=== PATIENT | male | born 1930 | race Caucasian/White ===

== ENCOUNTER 2017-03-15 16:08 | Emergency (ER) | payer MEDICARE, OTHER ==
[2017-03-15 16:35] VITALS: BP 163/102
--- NOTE | 2017-03-15 17:54 | RAD ---
INDICATION: Crush injury left fifth finger. TECHNIQUE: 3 views of the left fifth finger were obtained. FINDINGS: There is soft tissue swelling and a soft tissue defect adjacent to the distal phalanx. There is a transverse fracture through the tuft of the distal phalanx. The distal fragment is displaced posterior and demonstrates posterior angulation relative the proximal fragment. IMPRESSION: TRANSVERSE, POSSIBLY OPEN, DISPLACED, ANGULATED FRACTURE OF THE TUFT OF THE DISTAL PHALANX.
--- NOTE | 2017-03-15 19:19 | ED ---
Upper Extremity Pain - HPI Summary HPI Summary: 86M presents with left fifth digit laceration after getting it caught in the garage door. He states that he was closing in the door and his finger got caught. He is not on any blood thinners. His tetanus is up to date. Has full ROM of fingers. - History of Current Complaint Chief Complaint: EDExtremityUpper Stated Complaint: LT PINKY FINGER LAC Time Seen by Provider: 03/15/17 16:47 - Allergies/Home Medications Allergies/Adverse Reactions: Allergies Allergy/AdvReac Type Severity Reaction Status Date / Time CI Pigment Blue 63 Allergy Muscle Ache Verified 12/09/15 08:03 [From Bystolic] Nebivolol [From Bystolic] Allergy Muscle Ache Verified 12/09/15 08:03 Olmesartan [From Benicar] Allergy Muscle Ache Verified 12/09/15 08:03 Ramipril Allergy Muscle Ache Verified 12/09/15 08:03 Sorbitan [From Bystolic] Allergy Muscle Ache Verified 12/09/15 08:03 Sulfa Antibiotics Allergy Rash And Verified 12/09/15 08:03 Itching Timolol Allergy Difficulty Verified 12/09/15 08:03 Breathing Yellow Dye [From Bystolic] Allergy Muscle Ache Verified 12/09/15 08:03 PMH/Surg Hx/FS Hx/Imm Hx Endocrine/Hematology History: Reports: Hx Diabetes - TAKES METFORMIN Denies: Hx Thyroid Disease Cardiovascular History: Reports: Hx Hypertension - TAKES MEDS Respiratory History: Denies: Hx Asthma, Hx Sleep Apnea GI History: Denies: Hx Gastroesophageal Reflux Disease, Hx Irritable Bowel Musculoskeletal History: Denies: Hx Arthritis Sensory History: Reports: Hx Contacts or Glasses - READING GLASSES Denies: Hx Hearing Aid Opthamlomology History: Reports: Hx Contacts or Glasses - READING GLASSES Neurological History: Denies: Hx Headaches, Hx Migraine, Hx Seizures Psychiatric History: Denies: Hx Anxiety, Hx Depression - Surgical History Surgery Procedure, Year, and Place: RIGHT EYE Hx Anesthesia Reactions: No Infectious Disease History: No Infectious Disease History: Denies: Traveled Outside the [place] in Last 30 Days - Family History Known Family History: Positive: Cardiac Disease - Social History Alcohol Use: Rare Substance Use Type: Reports: None Smoking Status (MU): Former Smoker Review of Systems Negative: Fever Negative: Chest Pain Negative: Shortness Of Breath Positive: Myalgia - left pinky finger with lac All Other Systems Reviewed And Are Negative: Yes Physical Exam Triage Information Reviewed: Yes Vital Signs On Initial Exam: Initial Vitals Temp Pulse Resp BP Pulse Ox 97.8 F 89 16 163/102 95 03/15/17 16:31 03/15/17 16:31 03/15/17 16:31 03/15/17 16:31 03/15/17 16:31 Vital Signs Reviewed: Yes Appearance: Positive: Well-Appearing Skin: Positive: Warm, Dry, Other - left 5th finger 1cm laceration across distal phalanx almost looks like partial ambutation. two small lac near end of nail. nailbed intact. subungual hematoma on nail Head/Face: Positive: Normal Head/Face Inspection Eyes: Positive: Normal, Conjunctiva Clear Respiratory/Lung Sounds: Positive: Clear to Auscultation, Breath Sounds Present Cardiovascular: Positive: Normal, RRR Musculoskeletal: Positive: Strength/ROM Intact - left pinky finger, Other - good pulses, sensation grossly intact - Kwasi Coma Scale Coma Scale Total: 15 Procedures - Laceration/Wound Repair 1 Location: Other - left pinky finger Description: Irregular Anesthesia: Digital, 1.0% Length, Depth and Shape: 1cm by 1/4cm laceration across distal phalanx. two small lac near end of nail. Betadine Prep?: Yes Irrigated w/ Saline (ccs): 1,000 Laceration/Wound Explored: clean, no foreign body removed Closure: Single Layer Suture Type: Prolene Number of Sutures: 6 Layer Closure?: No Sterile Dressing Applied?: Yes - telfa, coband, finger splint - Nail Trepanation Nail Trepanation Location: left pinky finger Method of Drainage: nail cauterized Sterile Dressing Applied: Yes - coband and telfa Finger Splint: Yes Diagnostics - Vital Signs Vital Signs Temp Pulse Resp BP Pulse Ox 03/15/17 16:31 97.8 F 89 16 163/102 95 - Laboratory Lab Statement: Any lab studies that have been ordered have been reviewed, and results considered in the medical decision making process. - Radiology finger Xray Interpretation: Positive (See Comments) - IMPRESSION: TRANSVERSE, POSSIBLY OPEN, DISPLACED, ANGULATED FRACTURE OF THE TUFT OF THE DISTAL PHALANX. Radiology Interpretation Completed By: Radiologist Course/Dx - Course Course Of Treatment: 86M presents with left fifth digit laceration after getting it caught in the garage door. He states that he was closing in the door and his finger got caught. He is not on any blood thinners. His tetanus is up to date. Has full ROM of fingers. has 1cm laceration across distal phalanx almost looks like partial ambutation. two small lac near end of nail. nailbed intact. subungual hematoma so performed nail trepanation. placed in finger splint. placed on keflex. told to follow up with ortho due to potential open tuft fx. patient understands and agrees with plan. 6 - Diagnoses Differential Diagnosis/HQI/PQRI: Positive: Fracture (Open), Fracture (Closed), Other - laceration, avulsion Provider Diagnoses: left pinky tuft fracture, Laceration Discharge - Discharge Plan Condition: Good Disposition: HOME Prescriptions: Cephalexin CAP* [Keflex CAP*] 500 mg PO BID #13 cap Patient Education Materials: Care For Your Stitches (ED), Finger Fracture (ED) Referrals: Clifford Puentes MD [Primary Care Provider] - Shai Barclay MD [Medical Doctor] - Additional Instructions: Keep area in splint, change dressing once a day Keep area clean and dry for 48 hours Take Tylenol for pain every 6 hours Return to ED or primary for suture removal in 10-14 days Follow up with ortho Take keflex twice a day for 7 days Return to ED if develop signs of infection such as fever, spreading redness, or pus formation
[2017-03-15] MEDS ORDERED: Cephalexin CAP* 500 MG PO ONE (19:20)
== END 2017-03-15 19:40 | disposition home or self-care (01) ==
LOC: ED 16:08
DX: S62.637A Displaced fracture of distal phalanx of left little finger, initial encounter for closed fracture (principal); S61.217A Laceration without foreign body of left little finger without damage to nail, initial encounter; W23.0XXA Caught, crushed, jammed, or pinched between moving objects, initial encounter; Y93.9 Activity, unspecified; Y92.59 Other trade areas as the place of occurrence of the external cause; E11.9 Type 2 diabetes mellitus without complications; Z79.84 Long term (current) use of oral hypoglycemic drugs; I10 Essential (primary) hypertension; Z88.2 Allergy status to sulfonamides; Z87.891 Personal history of nicotine dependence
CPT/HCPCS: 12001; 73140; 99282; A9270-GY

== ENCOUNTER 2018-03-07 13:27 | Emergency (ER) | payer MEDICARE, OTHER ==
--- OUTSIDE RECORDS SUMMARY | 2018-03-07 13:33 | XMS REPORT ---
:1930 External Reference #:[id number] Author Organization [facility] Address [address] [place] [address] [place] [address] Phone [phone] Care Team Providers Name Role Phone Clifford Puentes III, MD Primary Care Physician Unavailable Payers Type Date Identification Numbers Payment Provider Subscriber Medicare Primary Effective: Policy Number: Medicare Joesph Richardson Chaparro 1994 [id number] PayID: [id number] [address] [place] [address] Medigap Part B Effective: Policy Number: [place] [employer] Joesph N Chaparro 2017 [id number] Accident Ins PayID: [id number] [address] [place] [address] Advance Directives Type Date Description Status Comment Other Directive 11/21/2013 Health Care Proxy Current and Verified Problems Date Description Provider Status Onset: 03/08/2011 Benign essential hypertension Clifford Puentes M.D. Active Onset: 05/02/2011 Type 2 diabetes mellitus Clifford Puentes M.D. Active Onset: 04/27/2012 Pure hypercholesterolemia Clifford Puentes M.D. 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 Active Family History Date Family Member(s) Problem(s) Comments Father due to Abdominal () - ? ruptured AAA; Aneurysm age 51, (+) smoker Mother Migraine Mother due to Diabetes () - ? DM complications; age 70, (+) HTN First Brother Diabetes Second Brother due to COPD () - age 78, (+) smoker Social History Type Date Description Comments Lives With Occupation Retired Cigarette Use Quit - Age 23 ETOH Use 01/24/2013 Occasionally consumes alcohol Smoking 1954 Patient is a former smoker Exercise Type/Frequency Exercises regularly Exercise Type/Frequency treadmill, exercise routine at [employer] 3x/week Allergies, Adverse Reactions, Alerts Date Description Reaction Status Severity Comments 11/07/2007 Sulfa active 11/07/2007 Zestoretic active 03/17/2010 Benicar ? muscle aches active 01/24/2013 Ramipril headaches active 05/06/2013 Timolol unsure active 09/24/2013 Bystolic severe muscle aches. active Medications Medication Date Status Form Strength Qnty SIG Indications Ordering Provider Accu-Chek Shy 01/15 Active Strips 100un check Leti its blood Chowdhury, sugar 2 M.D. times a day dx E11.9 Jardiance 10/09 Active Tablets 10mg 30tab 1 by mouth Clifford E. /2017 s daily in Moy Puentes morning Clopidogrel 10/09 Active Tablets 75mg 90tab take 1 Clifford E. Bisulf s tablet by augusto Puentes.DLina every day Amlodipine Besylate 09/28 Active Tablets 2.5mg 90tab 2 tabs Clifford E. /2017 s daily Tre Puentes Metformin HCL 05/13 Active Tablets 500mg 360ta take 2 Clifford E. /2014 bs tablets by augusto Puentes in M.DLina the morning Avapro 12/24 Active Tablets 300mg 90tab take 1 Clifford E. /2014 s tablet by augusto Puentes M.DLina every day Fish Oil 00 Active Capsules 1000mg 2 by mouth Unknown /0000 every day Atorvastatin Active Tablets 80mg take one Unknown Calcium /0000 tablet by mouth every evening Aspir-Low 00/00 Active Tablets 81mg 1 by mouth Unknown /0000 every day Amlodipine Besylate 10/05 Hx Tablets 2.5mg 90tab 1 tab by I10 s mouth Deloris, - every day M.D. 04/09 Metformin HCL 05/13 Hx Tablets 500mg 360ta 4 tabs bs daily as Deloris, - directed. M.D. 10/21 will be departing to [place] on 05/19/15 for 3mths. Prednisone 04/07 Hx Tablets 5mg 60tab 1 by mouth Clifford s every day Deloris, - for 1 M.D. 12/24 week, 1/2 pill daily x 3-4 weeks, if tolerated Keflex 12/17 Hx Capsules 500mg 6caps 1 by mouth 782.1 Clifford twice a Deloris, - day M.D. 02/12 Metformin HCL ER 12/02 Hx Tablets 500mg 120ta take 2 E11.9 ER 24HR bs tablets in Deloris, - am and 1 M.D. 05/13 in Prednisone 11/08 Hx Tablets 10mg 30tab 1/2 by Clifford Lina s mouth Deloris, - every day M.D. 04/07 x 2 Klor-Con M20 11/05 Hx Tablets 20Meq 10tab 1 by mouth 401.1 ER s every day Deloris, - M.D. 11/21 Prednisone 09/24 Hx Tablets 20mg 30tab 1 by mouth 729.1 Clifford s every day Deloris, - M.D. 11/05 Ramipril 10/25 Hx Capsules 2.5mg 30cap take one 250.00 Clifford s capsule Deloris, - daily. M.D. 01/24 Acyclovir 03/15 Hx Tablets 400mg 21tab 1 tab po 695.11 Raoul s tid x 7 D. Carmen, - days M.D.,FACP 03/25 Hydrocortisone 02/03 Hx Ointment 2.5% 20gm bid 708.9 Raoul sparingly Liliana Morales, - to the M.D.,[facility] 05/02 area Azithromycin 10/18 Hx Tablets 250mg 6tabs 2 tabs po 466.0 qd x1 day, Liliana Morales, - 1 tab po M.Liliana,[facility] 11/02 qd x days Proventil HFA 10/18 Hx Aerosol 108(90Bas 2 puffs 466.0 e) mcg/ac qid Lillie Penn M.D.,[facility] 03/15 Bystolic 04/29 Hx Tablets 5mg 90tab Take 1 Clfiford Rordiguez s Tablet By Lillie Puentes M.D. 09/24 Every Omeprazole 10/19 Hx Capsules 20mg 90cap 1 po qd Clifford Rodriguez /2009 Lillie Deng M.D. 02/26 Cod Liver Oil 04/29 Hx Capsules 1 PO qd Clifford Rodriguez /2007 Lillie Puentes M.D. 11/05 Zocor 05/01 Hx Tablets 20mg 90tab 1 po qd Clifford Rodriguez /2006 Lillie Momin M.D. 04/29 Benicar Hx Tablets 5mg 90tab 1 po qd Clifford E. / Lillie Momin M.D. 12/31 Glucophage XR Hx Tablets 500mg 90tab 1 PO qd Clifford E. /0000 Lillie Momin M.D. 04/21 Clobetasol Hx Cream 0.05% 30g topically Unknown 0000 qd prn - 11/01 Timolol Maleate Hx GFS 0.5% patient Unknown /0000 d/c'ed. - 10/25 Aspirin Adult Low Hx Chewtabs 81mg 30uni 1 po qd Unknown Strength /0000 ts - 11/21 Avapro 00 Hx Tablets 150mg 90tab 1 by mouth Clifford E. / s every day Lillie Puentes M.D. 12/24 Fish Oil 00 Hx Capsules 800mg 1 by mouth Unknown /0000 every day - 01/18 Vitamin D 00 Hx Tablets 1000Unit by mouth Unknown /0000 everyday - 01/18 Neomycin-Polymyxin Hx Solution [id number] Unknown B /0000 - 01/18 Amlodipine Besylate Hx Tablets 2.5mg 1 by mouth Unknown /0000 every day - 11/08 Ipratropium Paicines 00 Hx Solution 0.06% 15uni Use 2 Clifford E. /0000 ts Sprays In Deloris, - Each M.D. 03/20 Once A Day as Needed Hydrochlorothiazide 00 Hx Tablets 25mg 90tab Take 1 Clifford E. /0000 s Tablet By Deloris, - Mouth In M.D. 10/09 Morning Immunizations CPT Code Status Date Vaccine Lot # [id number] Given 02/15/2018 Tdap - Tetanus/Diptheria/Acellular Pertussis [id number] Given 04/13/2017 Influenza Virus Vaccine, Quadrivalent, Split, Preservative Free 48970 Given 04/06/2016 Influenza Virus Vaccine, Quadrivalent, Split [id number] Virus, [place] Use 96627 Given 03/31/2015 Influenza Virus Vaccine, Quadrivalent, Split, [id number] Preservative Free 47201 Given 04/22/2014 Pneumococcal Conjugate Vaccine 13 Valent For [id number] Intramuscular Use 56619 Given 04/22/2014 Flu Vaccine Split Virus Preservative Free For [id number] Indiv 3Yr Older 71846 Given 05/06/2013 Flu Vaccine Split Virus Preservative Free For [id number] Indiv 3Yr Older Q2038 Given 03/14/2012 Fluzone Vaccine [id number] 89524 Given 11/02/2011 Zoster (Zostavax) [id number] Q2038 Given 03/15/2011 Fluzone Vaccine [id number] 96794 Given 04/19/2010 Influenza Virus 3Yrs & Over [id number] 72519 Given 04/29/2008 Tetanus And Diptheria (Td) For Adult Use Preservative Free 22353 Given 04/29/2008 Tetanus And Diptheria (Td) For Adult Use [id number] Preservative Free 28808 Given 04/22/2008 Influenza Virus 3Yrs & Over 46676 Given 04/22/2008 Influenza Virus 3Yrs & Over 60584 Given 05/01/2007 Td (History By Patient) 24528 Given 05/01/2007 Influenza Virus 3Yrs & Over 93881 Given 05/01/2007 Influenza Virus 3Yrs & Over [id number] Vital Signs Date Vital Result Comment 02/15/2018 Height 67.25 inches 5'7.25" Weight 181.00 lb Heart Rate 81 /min BP Systolic Sitting 150 mmHg BP Diastolic Sitting 80 mmHg O2 % BldC Oximetry 95 % BMI (Body Mass Index) 28.1 kg/m2 11/08/2017 Weight 185.00 lb Heart Rate 74 /min BP Systolic Sitting 140 mmHg BP Diastolic Sitting 82 mmHg O2 % BldC Oximetry 97 % 10/09/2017 Weight 187.00 lb Heart Rate 86 /min BP Systolic 148 mmHg left BP Diastolic 86 mmHg left BP Systolic Sitting 150 mmHg right BP Diastolic Sitting 84 mmHg right Body Temperature 97.4 F O2 % BldC Oximetry 95 % 04/10/2017 Height 67.25 inches 5'7.25" Weight 188.00 lb Heart Rate 92 /min BP Systolic Sitting 144 mmHg BP Diastolic Sitting 90 mmHg Body Temperature 97.1 F Pain Level 0 O2 % BldC Oximetry 96 % BMI (Body Mass Index) 29.2 kg/m2 03/27/2017 Height 69 inches 5'9" Weight 189.00 lb Heart Rate 60 /min BP Systolic 122 mmHg BP Diastolic 70 mmHg Body Temperature 96.9 F Pain Level 0 BMI (Body Mass Index) 27.9 kg/m2 03/23/2017 Height 69 inches 5'9" Weight 189.00 lb Heart Rate 94 /min BP Systolic Sitting 110 mmHg BP Diastolic Sitting 74 mmHg Body Temperature 97.6 F O2 % BldC Oximetry 96 % BMI (Body Mass Index) 27.9 kg/m2 10/05/2016 Height 69 inches 5'9" Weight 191.00 lb Heart Rate 78 /min BP Systolic 160 mmHg BP Diastolic 82 mmHg O2 % BldC Oximetry 95 % BMI (Body Mass Index) 28.2 kg/m2 04/06/2016 Height 69 inches 5'9" Weight 190.00 lb Heart Rate 89 /min BP Systolic Sitting 168 mmHg BP Diastolic Sitting 78 mmHg Body Temperature 97.8 F O2 % BldC Oximetry 97 % BMI (Body Mass Index) 28.1 kg/m2 11/09/2015 Height 69 inches 5'9" Weight 189.00 lb Heart Rate 93 /min BP Systolic Sitting 137 mmHg BP Diastolic Sitting 71 mmHg Body Temperature 97.3 F BMI (Body Mass Index) 27.9 kg/m2 10/22/2015 Weight 192.00 lb Heart Rate 92 /min BP Systolic Sitting 135 mmHg BP Diastolic Sitting 88 mmHg Body Temperature 96.6 F 03/31/2015 Height 68 inches 5'8" Weight 188.00 lb Heart Rate 81 /min BP Systolic Sitting 138 mmHg BP Diastolic Sitting 84 mmHg Body Temperature 97.4 F O2 % BldC Oximetry 96 % BMI (Body Mass Index) 28.6 kg/m2 01/19/2015 Height 68 inches 5'8" Weight 185.00 lb Heart Rate 80 /min BP Systolic Sitting 126 mmHg BP Diastolic Sitting 80 mmHg Respiratory Rate 14 /min BMI (Body Mass Index) 28.1 kg/m2 12/24/2014 Height 68 inches 5'8" Weight 187.00 lb Heart Rate 80 /min BP Systolic Sitting 140 mmHg BP Diastolic Sitting 82 mmHg Body Temperature 97.3 F O2 % BldC Oximetry 98 % BMI (Body Mass Index) 28.4 kg/m2 11/19/2014 Height 68 inches 5'8" Weight 189.00 lb Heart Rate 88 /min BP Systolic Sitting 162 mmHg BP Diastolic Sitting 90 mmHg Body Temperature 98.7 F O2 % BldC Oximetry 97 % BMI (Body Mass Index) 28.7 kg/m2 11/07/2014 Height 68 inches 5'8" Weight 186.00 lb Heart Rate 91 /min BP Systolic 156 mmHg BP Diastolic 88 mmHg Body Temperature 97.1 F BMI (Body Mass Index) 28.3 kg/m2 09/29/2014 Weight 186.00 lb Heart Rate 74 /min BP Systolic Sitting 148 mmHg BP Diastolic Sitting 88 mmHg O2 % BldC Oximetry 98 % 04/30/2014 Weight 183.75 lb Heart Rate 89 /min BP Systolic Sitting 154 mmHg BP Diastolic Sitting 86 mmHg Body Temperature 96.8 F O2 % BldC Oximetry 94 % 04/22/2014 Height 68 inches 5'8" Weight 185.00 lb Heart Rate 82 /min BP Systolic Sitting 136 mmHg BP Diastolic Sitting 88 mmHg Body Temperature 96.8 F BMI (Body Mass Index) 28.1 kg/m2 02/12/2014 Height 68 inches 5'8" Weight 185.50 lb Heart Rate 88 /min BP Systolic Sitting 144 mmHg BP Diastolic Sitting 92 mmHg Body Temperature 97.3 F BMI (Body Mass Index) 28.2 kg/m2 12/17/2013 Height 67.5 inches 5'7.50" Weight 183.00 lb Heart Rate 84 /min BP Systolic Sitting 136 mmHg BP Diastolic Sitting 86 mmHg Body Temperature 96.9 F BMI (Body Mass Index) 28.2 kg/m2 12/02/2013 Height 68 inches 5'8" Weight 184.75 lb Heart Rate 88 /min BP Systolic Sitting 132 mmHg BP Diastolic Sitting 80 mmHg Body Temperature 98.0 F BMI (Body Mass Index) 28.1 kg/m2 11/21/2013 Height 68 inches 5'8" Weight 183.50 lb Heart Rate 88 /min BP Systolic Sitting 126 mmHg BP Diastolic Sitting 76 mmHg Body Temperature 97.8 F BMI (Body Mass Index) 27.9 kg/m2 11/05/2013 Weight 185.00 lb w/shoes Heart Rate 88 /min BP Systolic Sitting 124 mmHg BP Diastolic Sitting 68 mmHg Body Temperature 97.6 F 09/24/2013 Weight 188.00 lb Heart Rate 108 /min BP Systolic Sitting 138 mmHg BP Diastolic Sitting 78 mmHg O2 % BldC Oximetry 94 % 05/06/2013 Height 68.25 inches 5'8.25" Weight 192.50 lb Heart Rate 72 /min BP Systolic Sitting 164 mmHg BP Diastolic Sitting 84 mmHg BMI (Body Mass Index) 29.1 kg/m2 01/24/2013 Weight 191.50 lb Heart Rate 72 /min BP Systolic Sitting 158 mmHg BP Diastolic Sitting 82 mmHg 01/01/2013 Weight 193.50 lb Heart Rate 74 /min BP Systolic Sitting 152 mmHg BP Diastolic Sitting 84 mmHg 10/25/2012 Height 67.75 inches 5'7.75" Weight 193.50 lb Heart Rate 72 /min BP Systolic Sitting 158 mmHg BP Diastolic Sitting 82 mmHg BMI (Body Mass Index) 29.6 kg/m2 04/27/2012 Height 67.75 inches 5'7.75" Weight 190.00 lb Heart Rate 72 /min BP Systolic Sitting 142 mmHg BP Diastolic Sitting 70 mmHg BMI (Body Mass Index) 29.1 kg/m2 11/02/2011 Height 68 inches 5'8" Weight 192.00 lb Heart Rate 68 /min BP Systolic Sitting 138 mmHg BP Diastolic Sitting 80 mmHg BMI (Body Mass Index) 29.2 kg/m2 05/02/2011 Height 67.75 inches 5'7.75" Weight 186.25 lb Heart Rate 80 /min BP Systolic Sitting 129 mmHg BP Diastolic Sitting 80 mmHg BMI (Body Mass Index) 28.5 kg/m2 03/25/2011 Height 69 inches 5'9" Weight 188.00 lb Heart Rate 60 /min BP Systolic Sitting 140 mmHg BP Diastolic Sitting 80 mmHg BMI (Body Mass Index) 27.8 kg/m2 03/15/2011 Weight 189.00 lb Heart Rate 76 /min BP Systolic Sitting 148 mmHg BP Diastolic Sitting 82 mmHg 02/03/2011 Weight 189.00 lb Heart Rate 64 /min BP Systolic Sitting 136 mmHg BP Diastolic Sitting 82 mmHg 12/08/2010 Height 69 inches 5'9" Weight 192.00 lb Heart Rate 76 /min BP Systolic Sitting 146 mmHg BP Diastolic Sitting 80 mmHg BMI (Body Mass Index) 28.4 kg/m2 10/18/2010 Weight 190.00 lb Heart Rate 60 /min BP Systolic Sitting 132 mmHg BP Diastolic Sitting 70 mmHg O2 % BldC Oximetry 98 % room air 04/19/2010 Weight 188.00 lb Heart Rate 78 /min BP Systolic Sitting 154 mmHg BP Diastolic Sitting 98 mmHg 03/17/2010 Weight 186.00 lb Heart Rate 82 /min BP Systolic Sitting 122 mmHg BP Diastolic Sitting 83 mmHg 02/26/2010 Weight 187.00 lb Heart Rate 66 /min BP Systolic Sitting 158 mmHg BP Diastolic Sitting 92 mmHg 10/19/2009 Weight 198.00 lb Heart Rate 68 /min BP Systolic Sitting 170 mmHg BP Diastolic Sitting 90 mmHg 04/21/2009 Weight 186.00 lb Heart Rate 70 /min BP Systolic Sitting 134 mmHg BP Diastolic Sitting 90 mmHg 12/31/2008 Weight 189.00 lb Heart Rate 72 /min BP Systolic Sitting 156 mmHg BP Diastolic Sitting 84 mmHg 04/29/2008 Height 68 inches 5'8" Weight 188.00 lb Heart Rate 60 /min irregular BP Systolic Sitting 136 mmHg BP Diastolic Sitting 64 mmHg BMI (Body Mass Index) 28.6 kg/m2 11/07/2007 Weight 188.00 lb Heart Rate 76 /min BP Systolic Sitting 120 mmHg BP Diastolic Sitting 80 mmHg BP Diastolic Standing 90 mmHg Results Test Date Test Result H/L Range Note Laboratory test finding 02/15/2018 Hemoglobin A1c 6.3 5-7 Basic Metabolic Panel 02/12/2018 Sodium 141 mmol/L 135-145 Potassium 4.4 mmol/L 3.5-5.0 Chloride 109 mmol/L 101-111 Co2 Carbon Dioxide 28 mmol/L 22-32 Anion Gap 4 mmol/L 2-11 Glucose 114 mg/dL High 70-100 Blood Urea Nitrogen 22 mg/dL 6-24 Creatinine 1.18 mg/dL High 0.67-1.17 BUN/Creatinine Ratio 18.6 8-20 Calcium 9.1 mg/dL 8.6-10.3 Egfr Non- 58.3 >60 Egfr 70.5 >60 1 Laboratory test finding 10/30/2017 Anti Nuclear Antibody 0.2 U 2 Cardiolipin Iga < 9.4 APL 3 Cardiolipin Igg/Igm 10/30/2017 Phospholipid Ab IgM, S < 9.4 MPL 4 Phospholipid Ab IgG < 9.4 GPL 5 Laboratory test finding 10/30/2017 Complement Total CH50 60 U/mL 30 - 75 6 Complement C3 122 mg/dL 75 - 175 7 Complement C4 29 mg/dL 14 - 40 8 Smooth Muscle Antibody Negative Negative 9 Urinalysis Profile 10/30/2017 Urine Color Yellow Urine Appearance Clear Urine Specific Lane 1.020 1.010-1.030 Urine pH 5.0 5-9 Urine Urobilinogen Negative Negative Urine Ketones Negative Negative Urine Protein 2+(100 mg/dL) Negative Urine Leukocytes Negative Negative Urine Blood Negative Negative Urine Nitrite Negative Negative Urine Bilirubin Negative Negative Urine Glucose 3+(>=500 mg/dL) Negative Urine White Blood Cell Trace(0-5/hpf) Absent Urine Red Blood Cell Trace(0-2/hpf) Absent Urine Bacteria Absent Absent Comp Metabolic Panel 10/30/2017 Sodium 140 mmol/L 139-145 Potassium 4.5 mmol/L 3.5-5.0 Chloride 107 mmol/L 101-111 Co2 Carbon Dioxide 28 mmol/L 22-32 Anion Gap 5 mmol/L 2-11 Glucose 131 mg/dL High 70-100 Blood Urea Nitrogen 22 mg/dL 6-24 Creatinine 1.18 mg/dL High 0.67-1.17 BUN/Creatinine Ratio 18.6 8-20 Calcium 9.4 mg/dL 8.6-10.3 Total Protein 6.4 g/dL 6.4-8.9 Albumin 3.9 g/dL 3.2-5.2 Globulin 2.5 g/dL 2-4 Albumin/Globulin Ratio 1.6 1-3 Total Bilirubin 0.60 mg/dL 0.2-1.0 Alkaline Phosphatase 73 U/L 34-104 Alt 21 U/L 7-52 Ast 19 U/L 13-39 Egfr Non- 58.3 >60 Egfr 74.9 >60 10 Urine Culture And 10/30/2017 Urine Culture SEE RESULT BELOW 11 Sensitivities CBC No Diff 10/30/2017 White Blood Count 7.3 10^3/uL 3.5-10.8 Red Blood Count 4.09 10^6/uL 4.0-5.4 Hemoglobin 13.0 g/dL Low 14.0-18.0 Hematocrit 38 % Low 42-52 Mean Corpuscular Volume 92 fL 80-94 Mean Corpuscular Hemoglobin 32 pg High 27-31 Mean Corpuscular HGB Conc 35 g/dL 31-36 Red Cell Distribution Width 14 % 10.5-15 Platelet Count 224 10^3/uL 150-450 Mean Platelet Volume 7.9 um3 7.4-10.4 Laboratory test finding 10/30/2017 Erythrocyte Sed Rate 20 mm/Hr 0-40 Urine Microalbumin Random 04/04/2017 Urine Creatinine 107.80 mg/dL Ur Microalbumin (mg/L) 883.1 mg/L Urine Microalbumin/Creatinine 819.2 ug/mg High <31 Comp Metabolic Panel 04/04/2017 Sodium 137 mmol/L 133-145 Potassium 4.1 mmol/L 3.5-5.0 Chloride 100 mmol/L Low 101-111 Co2 Carbon Dioxide 30 mmol/L 22-32 Anion Gap 7 mmol/L 2-11 Glucose 150 mg/dL High 70-100 Blood Urea Nitrogen 18 mg/dL 6-24 Creatinine 1.02 mg/dL 0.67-1.17 BUN/Creatinine Ratio 17.6 8-20 Calcium 9.3 mg/dL 8.6-10.3 Total Protein 6.7 g/dL 6.4-8.9 Albumin 3.9 g/dL 3.2-5.2 Globulin 2.8 g/dL 2-4 Albumin/Globulin Ratio 1.4 1-3 Total Bilirubin 0.90 mg/dL 0.2-1.0 Alkaline Phosphatase 64 U/L 34-104 Alt 19 U/L 7-52 Ast 19 U/L 13-39 Egfr Non- 69.1 >60 Egfr 88.8 >60 12 Lipid Profile (Trig/Chol/HDL) 04/04/2017 Triglycerides 144 mg/dL 13 Cholesterol 197 mg/dL 14 HDL Cholesterol 36.9 mg/dL 15 LDL Cholesterol 131 mg/dL 16 Laboratory test finding 04/04/2017 Hemoglobin A1c (Glyco 6.7 % High 4.0- 5.6 17 HGB) Basic Metabolic Panel 10/05/2016 Sodium 135 mmol/L 133-145 Potassium 3.8 mmol/L 3.5-5.0 Chloride 99 mmol/L Low 101-111 Co2 Carbon Dioxide 31 mmol/L 22-32 Anion Gap 5 mmol/L 2-11 Glucose 143 mg/dL High 70-100 Blood Urea Nitrogen 20 mg/dL 6-24 Creatinine 1.01 mg/dL 0.67-1.17 BUN/Creatinine Ratio 19.8 8-20 Calcium 9.5 mg/dL 8.6-10.3 Egfr Non- 69.9 >60 Egfr 89.9 >60 18 Lipid Profile (Trig/Chol/HDL) 04/02/2016 Triglycerides 87 mg/dL 19 Cholesterol 173 mg/dL 20 HDL Cholesterol 36.5 mg/dL 21 LDL Cholesterol 119 mg/dL 22 Laboratory test 04/02/2016 Hemoglobin A1c 6.8 % High Less than 6.0 23 finding (Glyco HGB) Urine Microalbumin 04/02/2016 Urine Creatinine 105.33 mg/dL Random Ur Microalbumin (mg/L) 647.4 mg/L Urine Microalbumin/Creatinine 614.6 ug/mg High <31 Laboratory test finding 12/09/2015 Point of Care Glucose 131 mg/dL High 74 -106 24 Laboratory test finding 11/25/2015 Point of Care Glucose 124 mg/dL High 74 -106 25 Laboratory test finding 10/22/2015 Hemoglobin A1c 6.7 5-7 Basic Metabolic Panel 04/23/2015 Sodium 136 mmol/L 133-145 26 Potassium 4.3 mmol/L 3.5-5.0 26 Chloride 100 mmol/L Low 101-111 26 Co2 Carbon Dioxide 30 mmol/L 22-32 26 Anion Gap 6 mmol/L 2-11 26 Glucose 134 mg/dL High 70-100 26 Blood Urea Nitrogen 19 mg/dL 6-24 26 Creatinine 1.00 mg/dL 0.67-1.17 26 BUN/Creatinine Ratio 19.0 8-20 26 Calcium 9.7 mg/dL 8.6-10.3 26 Egfr Non- 71.0 >60 26 Egfr 91.3 >60 26, 27 Laboratory test 03/26/2015 Hemoglobin A1c (Glyco 7.2 % High Less than 6.0 28 finding HGB) Urine Microalbumin 03/26/2015 Ur Microalbumin 272.0 mg/L Random (mg/L) Urine Creatinine 113.76 mg/dL Urine Microalbumin/Creatinine 239.0 ug/mg High <31 Basic Metabolic Panel 12/08/2014 Sodium 136 mmol/L 133-145 Potassium 4.1 mmol/L 3.5-5.0 Chloride 99 mmol/L Low 101-111 Co2 Carbon Dioxide 29 mmol/L 22-32 Anion Gap 8 mmol/L 2-11 Glucose 211 mg/dL High 70-100 Blood Urea Nitrogen 20 mg/dL 6-24 Creatinine 0.96 mg/dL 0.67-1.17 BUN/Creatinine Ratio 20.8 High 8-20 Calcium 9.5 mg/dL 8.6-10.3 Egfr Non- 74.4 >60 Egfr 95.7 >60 29 CBC Auto Diff 11/07/2014 White Blood Count 7.8 10^3/uL 4.8-10.8 Red Blood Count 4.77 10^6/uL 4.0-5.4 Hemoglobin 15.3 g/dL 14.0-18.0 Hematocrit 45 % 42-52 Mean Corpuscular Volume 94 fL 80-94 Mean Corpuscular Hemoglobin 32 pg High 27-31 Mean Corpuscular HGB Conc 34 g/dL 31-36 Red Cell Distribution Width 14 % 10.5-15 Platelet Count 214 10^3/uL 150-450 Mean Platelet Volume 9 um3 7.4-10.4 Abs Neutrophils 5.3 10^3/uL 1.5-7.7 Abs Lymphocytes 1.2 10^3/uL 1.0-4.8 Abs Monocytes 0.9 10^3/uL High 0-0.8 Abs Eosinophils 0.3 10^3/uL 0-0.6 Abs Basophils 0.1 10^3/uL 0-0.2 Abs Nucleated RBC 0 10^3/uL Granulocyte % 68.5 % 38-83 Lymphocyte % 15.1 % Low 25-47 Monocyte % 11.9 % High 1-9 Eosinophil % 3.8 % 0-6 Basophil % 0.7 % 0-2 Nucleated Red Blood Cells % 0.1 Laboratory test finding 11/07/2014 C Reactive Protein 4.12 mg/L < 5.00 30 Erythrocyte Sed Rate 20 mm/Hr 0-40 Lipid Profile (Trig/Chol/HDL) 10/02/2014 Triglycerides 111 mg/dL 31, 32 Cholesterol 180 mg/dL 31, 33 HDL Cholesterol 41.9 mg/dL 31, 34 LDL Cholesterol 116 mg/dL 31, 35 Comp Metabolic Panel 10/02/2014 Sodium 137 mmol/L 133-145 31 Potassium 4.3 mmol/L 3.5-5.0 31 Chloride 101 mmol/L 101-111 31 Co2 Carbon Dioxide 32 mmol/L 22-32 31 Anion Gap 4 mmol/L 2-11 31 Glucose 130 mg/dL High 70-100 31 Blood Urea Nitrogen 19 mg/dL 6-24 31 Creatinine 0.92 mg/dL 0.67-1.17 31 BUN/Creatinine Ratio 20.7 High 8-20 31 Calcium 9.6 mg/dL 8.6-10.3 31 Total Protein 6.6 g/dL 6.4-8.9 31 Albumin 4.1 g/dL 3.2-5.2 31 Globulin 2.5 g/dL 2-4 31 Albumin/Globulin Ratio 1.6 1-3 31 Total Bilirubin 0.80 mg/dL 0.2-1.0 31 Alkaline Phosphatase 45 U/L 34-104 31 Alt 15 U/L 7-52 31 Ast 16 U/L 13-39 31 Egfr Non- 78.2 >60 31 Egfr 100.6 >60 31, 36 Laboratory test finding 09/29/2014 Hemoglobin A1c 6.4 5-7 Laboratory test finding 04/30/2014 C Reactive Protein 2.64 mg/L < 5.00 37 Erythrocyte Sed Rate 12 mm/Hr 0-40 Laboratory test finding 04/22/2014 Hemoglobin A1c 6.3 5-7 Laboratory test finding 02/27/2014 C Reactive Protein 3.75 mg/L < 5.00 38 Erythrocyte Sed Rate 12 mm/Hr 0-40 Basic Metabolic Panel 02/11/2014 Sodium 139 mmol/L 133-145 31 Potassium 4.5 mmol/L 3.7-5.6 31 Chloride 101 mmol/L 101-111 31 Co2 Carbon Dioxide 32 mmol/L 22-32 31 Anion Gap 6 mmol/L 2-11 31 Glucose 112 mg/dL High 70-100 31 Blood Urea Nitrogen 14 mg/dL 6-24 31 Creatinine 0.89 mg/dL 0.67-1.17 31 BUN/Creatinine Ratio 15.7 8-20 31 Calcium 9.6 mg/dL 8.6-10.3 31 Egfr Non- 81.4 >60 31 Egfr 104.7 >60 31, 39 Laboratory test finding 02/11/2014 Erythrocyte Sed Rate 24 mm/Hr 0-40 31 , 40 C Reactive Protein 14.40 mg/L High < 5.00 31, 41 Hemoglobin A1c 7.4 % High Less than 6.0 31, 42 Wound Culture/Sensi 12/17/2013 Wound/Misc Culture-Gram (SEE NOTE) 43 Stain Basic Metabolic Panel 11/22/2013 Sodium 137 mmol/L 133-145 31 Potassium 4.3 mmol/L 3.7-5.6 31 Chloride 99 mmol/L Low 101-111 31 Co2 Carbon Dioxide 31 mmol/L 22-32 31 Anion Gap 7 mmol/L 2-11 31 Glucose 227 mg/dL High 70-100 31 Blood Urea Nitrogen 18 mg/dL 6-24 31 Creatinine 1.00 mg/dL 0.67-1.17 31 BUN/Creatinine Ratio 18.0 8-20 31 Calcium 9.6 mg/dL 8.6-10.3 31 Egfr Non- 71.2 >60 31 Egfr 91.6 >60 31, 44 Laboratory test 11/22/2013 Hemoglobin A1c 11.6 % High Less than 6.0 31, 45 finding Laboratory test 11/21/2013 Hemoglobin A1c 14.0 High 5-7 finding Laboratory test 11/05/2013 C Reactive Protein 27.91 mg/L High < 5.00 46 finding Erythrocyte Sed Rate 42 mm/Hr High 0-40 TSH (Thyroid Stimulating Horm) 1.57 IU/mL 0.34-5.60 Laboratory test finding 10/02/2013 Erythrocyte Sed Rate 26 mm/Hr 0-40 CBC With Manual Diff 09/24/2013 White Blood Count 7.1 10^3/uL 4.8-10.8 Red Blood Count 4.40 10^6/uL 4.0-5.4 Hemoglobin 13.9 g/dL Low 14.0-18.0 Hematocrit 40 % Low 42-52 Mean Corpuscular Volume 91 fL 80-94 Mean Corpuscular Hemoglobin 32 pg High 27-31 Mean Corpuscular HGB Conc 35 g/dL 31-36 Red Cell Distribution Width 14 % 10.5-15 Platelet Count 298 10^3/uL 150-450 Mean Platelet Volume 8 um3 7.4-10.4 Abs Neutrophils 4.8 10^3/uL 1.5-7.7 Abs Lymphocytes 1.0 10^3/uL 1.0-4.8 Abs Monocytes 0.9 10^3/uL High 0-0.8 Abs Eosinophils 0.3 10^3/uL 0-0.6 Abs Basophils 0 10^3/uL 0-0.2 Abs Nucleated RBC 0.01 10^3/uL Neutrophil % 68 % 38-83 Lymphocytes % 19 % Low 25-47 Monocytes % 12 % 0-13 Eosinophils % 1 % 0-6 RBC Morphology Normal Normal Laboratory test finding 09/24/2013 C Reactive Protein 49.47 mg/L High < 5.00 47 Erythrocyte Sed Rate 58 mm/Hr High 0-40 Comp Metabolic Panel 09/24/2013 Sodium 135 mmol/L 133-145 Potassium 3.8 mmol/L 3.7-5.6 Chloride 97 mmol/L Low 101-111 Co2 Carbon Dioxide 32 mmol/L 22-32 Anion Gap 6 mmol/L 2-11 Glucose 199 mg/dL High 70-100 Blood Urea Nitrogen 20 mg/dL 6-24 Creatinine 0.92 mg/dL 0.67-1.17 BUN/Creatinine Ratio 21.7 High 8-20 Calcium 9.2 mg/dL 8.6-10.3 Total Protein 6.6 g/dL 6.4-8.9 Albumin 3.8 g/dL 3.2-5.2 Globulin 2.8 g/dL 2-4 Albumin/Globulin Ratio 1.4 1-3 Total Bilirubin 0.50 mg/dL 0.2-1.0 Alkaline Phosphatase 59 U/L 34-104 Alt 17 U/L 7-52 Ast 17 U/L 13-39 Egfr Non- 78.4 >60 Egfr 100.8 >60 48 Comp Metabolic Panel 05/07/2013 Sodium 136 mmol/L 133-145 Potassium 4.2 mmol/L 3.5-5.0 Chloride 98 mmol/L Low 101-111 Co2 Carbon Dioxide 33.0 mmol/L High 22-32 Anion Gap 5.0 mmol/L 2-11 Glucose 131 mg/dL High 70-100 Blood Urea Nitrogen 17 mg/dL 6-24 Creatinine 1.00 mg/dL 0.50-1.40 BUN/Creatinine Ratio 17.0 8-20 Calcium 9.2 mg/dL 8.1-9.9 Total Protein 5.9 g/dL Low 6.2-8.1 Albumin 3.8 g/dL 3.2-5.2 Globulin 2.1 g/dL 2-4 Albumin/Globulin Ratio 1.8 1-3 Total Bilirubin 0.8 mg/dL 0.4-1.5 Alkaline Phosphatase 49 U/L 30-110 Alt 23 U/L 14-54 Ast 25 U/L 12-42 Egfr Non- 71.4 >60 Egfr 91.8 >60 49 Lipid Profile (Trig/Chol/HDL) 05/07/2013 Triglycerides 124 mg/dL 40-200 Cholesterol 174 mg/dL Less than 200 HDL Cholesterol 38 mg/dL Low 40-60 50 Cholesterol/HDL Ratio 4.6 Average High 1-4.44 LDL Cholesterol 111.2 High Less Than 100 51 Urine Microalbumin Random 05/06/2013 Ur Microalbumin (mg/L) 312.0 mg/L 52 Urine Creatinine 98.0 mg/dL Urine Microalbumin/Creatinine 318.4 High Less Than 31 Laboratory test finding 05/06/2013 Hemoglobin A1c 6.6 5-7 Laboratory test finding 10/22/2012 Hemoglobin A1c 6.5 5-7 Lipid Profile (Trig/Chol/HDL) 04/24/2012 Triglycerides 139 mg/dL 40-200 Cholesterol 198 mg/dL Less than 200 53 HDL Cholesterol 39 mg/dL Low 40-60 54 Cholesterol/HDL Ratio 5.1 AVERAGE High 1-4.44 LDL Cholesterol 131.2 mg/dL High Less Than 100 55 Basic Metabolic Panel 04/24/2012 Sodium 138 mmol/L 133-145 Potassium 4.3 mmol/L 3.5-5.0 Chloride 104 mmol/L 101-111 Co2 Carbon Dioxide 29.0 mmol/L 22-32 Anion Gap 5.0 mmol/L 2-11 Glucose 145 mg/dL High 70-100 Blood Urea Nitrogen 20 mg/dL 6-24 Creatinine 0.90 mg/dL 0.50-1.40 BUN/Creatinine Ratio 22.2 High 8-20 Calcium 9.3 mg/dL 8.1-9.9 Egfr Non- 80.8 >60 Egfr 103.9 >60 56 Laboratory test 04/24/2012 Hemoglobin A1c 6.6 % High Less than 6.0 57 finding Urine Microalbumin 04/24/2012 Ur Microalbumin 275.0 mg/L 58 Random (Mg/L) Urine Creatinine 119.5 mg/dL Urine Microalbumin/Creatinine 230.1 UG/MG High Less Than 31 Laboratory test finding 11/02/2011 Hemoglobin A1c 6.4 5-7 Comp Metabolic Panel 10/27/2011 Sodium 139 mmol/L 135-145 Potassium 4.7 mmol/L 3.5-5.0 Chloride 100 mmol/L Low 101-111 Co2 (Carbon Dioxide) 31.0 mmol/L 22-32 Anion Gap 8.0 mmol/L 2-11 59 Glucose 126 mg/dL High 70-100 BUN 15 mg/dL 6-24 Creatinine 0.9 mg/dL 0.50-1.40 One Over Creatinine 1.11 BUN/Creatinine Ratio 16.7 8-20 Calcium 9.2 mg/dL 8.1-9.9 Total Protein 6.5 GM/DL 6.2-8.1 Albumin 3.8 GM/DL 3.2-5.2 Globulin 2.7 GM/DL 2-4 Albumin/Globulin Ratio 1.4 1-3 Bilirubin Total 1.2 mg/dL 0.4-1.5 60 Alkaline Phosphatase 45 U/L 39-117 Alt (SGPT) 22 U/L 17-63 Ast (Sgot) 21 U/L 12-42 eGFR Non- 80.8 > 60 eGFR 103.9 > 60 61 Lipid Profile (Trig/Chol/HDL) 10/27/2011 Triglyceride 87 mg/dL 40-200 Cholesterol 177 mg/dL Less Than 200 62 High Density Lipoprotein 36 mg/dL Low 40-60 63 Cholesterol/HDL Ratio 4.92 AVERAGE 1-4.97 Low Density Lipoprotein 124 mg/dL High Less Than 100 64 Laboratory test finding 10/27/2011 Hemoglobin A1c 7.1 % High Less Than 6.0 65 Laboratory test finding 05/02/2011 Hemoglobin A1c 6.2 5-7 DR Puentes's Lab Panel 05/02/2011 TSH 2.55 MIU/ML 0.34-5.60 Comp Metabolic Panel 05/02/2011 Sodium 138 mmol/L 135-145 Potassium 4.3 mmol/L 3.5-5.0 Chloride 103 mmol/L 101-111 Co2 (Carbon Dioxide) 30.0 mmol/L 22-32 Anion Gap 5.0 mmol/L 2-11 66 Glucose 131 mg/dL High 70-100 BUN 15 mg/dL 6-24 Creatinine 0.9 mg/dL 0.50-1.40 One Over Creatinine 1.11 BUN/Creatinine Ratio 16.7 8-20 Calcium 9.2 mg/dL 8.1-9.9 Total Protein 7.3 GM/DL 6.2-8.1 Albumin 3.8 GM/DL 3.2-5.2 Globulin 3.5 GM/DL 2-4 Albumin/Globulin Ratio 1.1 1-3 Bilirubin Total 0.9 mg/dL 0.4-1.5 67 Alkaline Phosphatase 53 U/L 39-117 Alt (SGPT) 23 U/L 17-63 Ast (Sgot) 23 U/L 12-42 eGFR Non- 81.0 > 60 eGFR 104.2 > 60 68 Lipid Profile (Trig/Chol/HDL) 05/02/2011 Triglyceride 118 mg/dL 40-200 Cholesterol 177 mg/dL Less Than 200 69 High Density Lipoprotein 40 mg/dL 40-60 70 Cholesterol/HDL Ratio 4.43 AVERAGE 1-4.97 Low Density Lipoprotein 113 mg/dL High Less Than 100 71 CBC Auto Diff 05/02/2011 White Blood Count 7.5 CUMM 4.8-10.8 Red Cell Count 4.91 CUMM 4.6-6.2 Hemoglobin 16.0 g/dL 14.0-18.0 Hematocrit 46 % 42-52 Mean Corpuscular Volume 94 um3 80-94 Mean Corpuscular Hemoglob 33 pg High 27-31 Mean Corpuscular HGB Cone 35 g/dL 32-36 Redcell Distribution WDTH 14 % 10.5-15 Platelet Count 184 CUMM 150-450 Mean Platelet Volume 9.1 um3 7.4-10.4 72 Manual Differential 05/02/2011 Polysegmented Neutrophil 76 % 38-83 Lymphocyte 15 % Low 25-47 Monocyte 6 % 0-13 Eosinophil 3 % 0-6 Absolute Neutrophil Count 5.[address] Puentes's Lab Panel 12/02/2010 TSH 2.05 MIU/ML 0.34-5.60 Comp Metabolic Panel 12/02/2010 Sodium 139 mmol/L 135-145 Potassium 4.3 mmol/L 3.5-5.0 Chloride 102 mmol/L 101-111 Co2 (Carbon Dioxide) 31.0 mmol/L 22-32 Anion Gap 6.0 mmol/L 2-11 73 Glucose 133 mg/dL High 70-100 BUN 18 mg/dL 6-24 Creatinine 0.90 mg/dL 0.50-1.40 One Over Creatinine 1.10 BUN/Creatinine Ratio 20.0 8-20 Calcium 9.3 mg/dL 8.1-9.9 Total Protein 6.9 GM/DL 6.2-8.1 Albumin 3.9 GM/DL 3.2-5.2 Globulin 3.0 GM/DL 2-4 Albumin/Globulin Ratio 1.3 1-3 Bilirubin Total 1.2 mg/dL 0.4-1.5 74 Alkaline Phosphatase 51 U/L 39-117 Alt (SGPT) 27 U/L 17-63 Ast (Sgot) 28 U/L 12-42 eGFR Non- 81.0 > 60 eGFR 104.2 > 60 75 Lipid Profile (Trig/Chol/HDL) 12/02/2010 Triglyceride 83 mg/dL 40-200 Cholesterol 202 mg/dL High Less Than 200 76 High Density Lipoprotein 42 mg/dL 40-60 77 Cholesterol/HDL Ratio 4.81 AVERAGE 1-4.97 Low Density Lipoprotein 143 mg/dL High Less Than 100 78 CBC Auto Diff 12/02/2010 White Blood Count 5.9 CUMM 4.8-10.8 Red Cell Count 4.79 CUMM 4.6-6.2 Hemoglobin 15.3 g/dL 14.0-18.0 Hematocrit 47 % 42-52 Mean Corpuscular Volume 97 um3 High 80-94 Mean Corpuscular Hemoglob 32 pg High 27-31 Mean Corpuscular HGB Cone 33 g/dL 32-36 Redcell Distribution WDTH 14 % 10.5-15 Platelet Count 199 CUMM 150-450 Mean Platelet Volume 8.8 um3 7.4-10.4 Gran % 62.7 % 38-83 Lymph % 19.0 % Low 25-47 Mononuclear % 13.7 % High 1-9 Eosinophil % 4.2 % 0-6 Basophil % 0.4 % 0-2 Abs Lymphs 1.1 1.0-4.8 Abs Mononuclear 0.8 0-0.8 Absolute Neutrophil Count 3.7 1.5-7.7 Abs Eosinophils 0.2 0-0.6 Abs Basophils 0 0-0.2 79 Laboratory test 12/02/2010 Hemoglobin A1c 6.9 % High Less Than 6.0 80 finding Urine Microalbumin 12/02/2010 Microalbumin (MG/L) 227.0 mg/L Random Urine Creatinine 185.81 mg/dL [place]/Creatinine Ratio 122.1 UG/MG High Less Than 30 81 Laboratory test finding 12/02/2010 PSA,Diagnostic 0.28 NG/ML 0-4 82 Laboratory test finding 02/26/2010 Hemoglobin A1c 6.3 5-7 Surgical Pathology 12/08/2009 Surgical Pathology 83 <SEE NOTE> Lipid Profile 10/14/2009 Triglyceride 110 mg/dL 40-200 (Trig/Chol/HDL) Cholesterol 187 mg/dL Less Than 200 84 High Density Lipoprotein 39 mg/dL Low 40-60 85 Cholesterol/HDL Ratio 4.79 AVERAGE 1-4.97 Low Density Lipoprotein 126 mg/dL High Less Than 100 86 Laboratory test finding 10/14/2009 Hemoglobin A1c 6.5 % High Less Than 6.0 87 Basic Metabolic Panel 10/14/2009 Sodium 138 mmol/L 135-145 Potassium 4.2 mmol/L 3.5-5.0 Chloride 99 mmol/L Low 101-111 Co2 (Carbon Dioxide) 28.0 mmol/L 22-32 Anion Gap 11.0 mmol/L 2-11 88 Glucose 142 mg/dL High 70-100 89 BUN 12 mg/dL 6-24 Creatinine 0.80 mg/dL 0.50-1.40 One Over Creatinine 1.20 BUN/Creatinine Ratio 15.0 8-20 Calcium 9.8 mg/dL 8.1-9.9 90 eGFR Non- 98.9 > 60 eGFR 119.6 > 60 91 Comp Metabolic Panel 04/15/2009 Sodium 140 mmol/L 135-145 Potassium 4.1 mmol/L 3.5-5.0 Chloride 102 mmol/L 101-111 Co2 (Carbon Dioxide) 32.0 mmol/L 22-32 Anion Gap 6.0 mmol/L 2-11 92 Glucose 115 mg/dL High 70-100 93 BUN 17 mg/dL 6-24 Creatinine 0.90 mg/dL 0.50-1.40 One Over Creatinine 1.10 BUN/Creatinine Ratio 18.9 8-20 Calcium 9.5 mg/dL 8.1-9.9 94 Total Protein 6.8 GM/DL 6.2-8.1 Albumin 3.9 GM/DL 3.2-5.2 Globulin 2.9 GM/DL 2-4 Albumin/Globulin Ratio 1.3 1-3 Bilirubin Total 1.3 mg/dL 0.4-1.5 95 Alkaline Phosphatase 57 U/L 39-117 Alt (SGPT) 24 U/L 17-63 Ast (Sgot) 26 U/L 12-42 eGFR Non- 86.5 > 60 eGFR 104.7 > 60 96 Laboratory test finding 04/15/2009 TSH 1.87 MIU/ML 0.34-5.60 PSA Screening 0.21 NG/ML 0-4 97 CBC With Manual Diff 04/15/2009 White Blood Count 5.9 CUMM 4.8-10.8 Red Cell Count 5.12 CUMM 4.6-6.2 Hemoglobin 16.2 g/dL 14.0-18.0 Hematocrit 49 % 42-52 Mean Corpuscular Volume 95 um3 High 80-94 Mean Corpuscular Hemoglob 32 pg High 27-31 Mean Corpuscular HGB Cone 33 g/dL 32-36 Redcell Distribution WDTH 14 % 10.5-15 Platelet Count 213 CUMM 150-450 Mean Platelet Volume 8.4 um3 7.4-10.4 Polysegmented Neutrophil 61 % 38-83 Band Neutrophil 1 % 0-8 Lymphocyte 17 % Low 25-47 Monocyte 19 % High 0-13 Eosenophil 1 % 0-6 Basophil 1 % 0-2 Absolute Neutrophil Count 3.6 RBC Morphology NORMAL Lipid Profile (Trig/Chol/HDL) 04/15/2009 Triglyceride 82 mg/dL 40-200 Cholesterol 184 mg/dL Less Than 200 98 High Density Lipoprotein 43 mg/dL 40-60 99 Cholesterol/HDL Ratio 4.28 AVERAGE 1-4.97 Low Density Lipoprotein 125 mg/dL High Less Than 100 100 Basic Metabolic Panel 12/31/2008 Sodium 139 mmol/L 135-145 Potassium 4.3 mmol/L 3.5-5.0 Chloride 100 mmol/L Low 101-111 Co2 (Carbon Dioxide) 31.0 mmol/L 22-32 Anion Gap 8.0 mmol/L 2-11 101 Glucose 109 mg/dL High 70-100 102 BUN 15 mg/dL 6-24 Creatinine 1.00 mg/dL 0.50-1.40 One Over Creatinine 1.00 BUN/Creatinine Ratio 15.0 8-20 Calcium 9.5 mg/dL 8.1-9.9 103 eGFR Non- 76.6 > 60 eGFR 92.7 > 60 104 Laboratory test finding 12/31/2008 CPK (Creatine Kinase) 107 U/L 0-200 Hemoglobin A1c 6.3 % High <6.0 105 Liver Function Panel 10/06/2008 Total Protein 6.5 GM/DL 6.2-8.1 31 Albumin 3.8 GM/DL 3.2-5.2 31 Globulin 2.7 GM/DL 2-4 31 Albumin/Globulin Ratio 1.4 1-3 31 Bilirubin Total 0.8 mg/dL 0.4-1.5 31 Bilirubin Direct 0.1 mg/dL 0.1-0.5 31 Indirect Bilirubin 0.7 mg/dL 0.1-0.75 31 Alkaline Phosphatase 41 U/L 39-117 31 Alt (SGPT) 21 U/L 17-63 31 Ast (Sgot) 27 U/L 12-42 31 Laboratory test finding 10/06/2008 Glucose 119 mg/dL High 70-100 31, 106 Hemoglobin A1c 5.8 % <6.0 31, 107 Lipid Profile (Trig/Chol/HDL) 10/06/2008 Triglyceride 118 mg/dL 40-200 31 Cholesterol 174 mg/dL Less Than 200 31, 108 High Density Lipoprotein 39 mg/dL Low 40-60 31, 109 Cholesterol/HDL Ratio 4.46 AVERAGE 1-4.97 31 Low Density Lipoprotein 111 mg/dL High Less Than 100 31, 110 Basic Metabolic Panel 04/22/2008 Sodium 139 mmol/L 135-145 111 Potassium 5.1 mmol/L High 3.5-5.0 111 Chloride 103 mmol/L 101-111 111 Co2 (Carbon Dioxide) 32.0 mmol/L 22-32 111 Anion Gap 4.0 mmol/L 2-11 111, 112 Glucose 113 mg/dL High 70-100 111, 113 BUN 14 mg/dL 6-24 111 Creatinine 0.80 mg/dL 0.50-1.40 111 One Over Creatinine 1.20 111 BUN/Creatinine Ratio 17.5 8-20 111 Calcium 9.6 mg/dL 8.1-9.9 111, 114 Lipid Profile (Trig/Chol/HDL) 04/22/2008 Triglyceride 68 mg/dL 40-200 111 Cholesterol 176 mg/dL Less Than 200 111, 115 High Density Lipoprotein 43 mg/dL 40-60 111, 116 Cholesterol/HDL Ratio 4.09 AVERAGE 1-4.97 111 Low Density Lipoprotein 119 mg/dL High Less Than 100 111, 117 Laboratory test finding 04/22/2008 Hemoglobin A1c 6.1 % High <6.0 111, 118 Lipid Profile (Trig/Chol/HDL) 10/24/2007 Triglyceride 96 mg/dL 40-200 119 Cholesterol 120 mg/dL Less Than 200 119, 120 High Density Lipoprotein 34 mg/dL Low 40-60 119, 121 Cholesterol/HDL Ratio 3.53 AVERAGE 1-4.97 119 Low Density Lipoprotein 67 mg/dL Less Than 100 119, 122 Laboratory test finding 10/24/2007 Glucose 121 mg/dL High 70-105 119 Alt (SGPT) 25 U/L 17-63 119 Ast (Sgot) 25 U/L 12-42 119 Hemoglobin A1c 5.8 % <6.0 119, 123 Laboratory test finding 05/01/2007 Hemoglobin A1c 5.4 % <6.0 124 CBC W/ Electronic Diff 04/27/2007 White Blood Count 7.0 CUMM 4.8-10.8 Abs Basophils 0 0-0.2 Abs Eosinophils 0.2 0-0.6 Absolute Neutrophil Count 4.7 1.5-7.7 Abs Lymphs 1.3 1.0-4.8 Abs Mononuclear 0.8 0-0.8 Basophil % 0.2 % 0-2 Hematocrit 48 % 42-52 125 Hemoglobin 16.5 g/dL 14.0-18.0 Eosinophil % 2.6 % 0-6 Gran % 67.8 % 38-83 Lymph % 18.4 % Low 20-45 Mean Corpuscular HGB Cone 34 g/dL 32-36 Mean Corpuscular Hemoglob 32 pg High 27-31 Mean Corpuscular Volume 94 um3 80-94 Mean Platelet Volume 8.1 um3 7.4-10.4 Mononuclear % 11.0 % High 1-9 Platelet Count 231 CUMM 150-450 Red Cell Count 5.15 CUMM 4.6-6.2 Redcell Distribution WDTH 14 % 10.5-15 Comp Metabolic Panel 04/27/2007 One Over Creatinine 0.90 Anion Gap 8.0 mmol/L 2-11 126 Albumin/Globulin Ratio 1.4 1-3 Albumin 4.0 GM/DL 3.2-5.2 Alkaline Phosphatase 42 U/L 39-117 Alt (SGPT) 31 U/L 17-63 Ast (Sgot) 31 U/L 12-42 BUN 18 mg/dL 6-24 Calcium 9.9 mg/dL 8.7-10.2 Chloride 99 mmol/L Low 101-111 Co2 (Carbon Dioxide) 32.0 mmol/L 22-32 Globulin 2.9 GM/DL 2-4 Glucose 129 mg/dL High 70-105 Potassium 5.1 mmol/L High 3.5-5.0 Sodium 139 mmol/L 135-145 Bilirubin Total 1.0 mg/dL 0.4-1.5 Total Protein 6.9 GM/DL 6.2-8.1 BUN/Creatinine Ratio 16.4 8-20 Creatinine 1.1 mg/dL 0.5-1.4 Lipid Profile 04/27/2007 Cholesterol/HDL Ratio 3.22 AVERAGE 1-4.97 (Trig/Chol/HDL) Cholesterol 148 mg/dL Less Than 200 127 Triglyceride 78 mg/dL 40-200 High Density Lipoprotein 46 mg/dL 40-60 Low Density Lipoprotein 86 mg/dL Less Than 100 128 Laboratory test finding 04/27/2007 PSA Screening 0.23 NG/ML 0-4 129 TSH 1.56 MIU/ML 0.34-5.60 Laboratory test finding 01/17/2007 Glucose 103 mg/dL 70-105 119 Liver Function Panel 01/17/2007 Albumin/Globulin Ratio 1.2 1-3 119 Albumin 3.8 GM/DL 3.2-5.2 119 Alkaline Phosphatase 41 U/L 39-117 119 Alt (SGPT) 24 U/L 17-63 119 Ast (Sgot) 27 U/L 12-42 119 Bilirubin Direct 0.2 mg/dL 0.1-0.5 119 Globulin 3.3 GM/DL 2-4 119 Indirect Bilirubin 0.7 mg/dL 0.1-0.75 119 Bilirubin Total 0.9 mg/dL 0.4-1.5 119 Total Protein 7.1 GM/DL 6.2-8.1 119 Lipid Profile 01/17/2007 Cholesterol/HDL Ratio 2.87 AVERAGE 1-4.97 119 (Trig/Chol/HDL) Cholesterol 109 mg/dL Less Than 200 119, 130 Triglyceride 43 mg/dL 40-200 119 High Density Lipoprotein 38 mg/dL Low 40-60 119, 131 Low Density Lipoprotein 62 mg/dL Less Than 100 119, 132 Laboratory test finding 01/17/2007 Hemoglobin A1c 6.0 % <6.0 119, 133 1 Because ethnic data is not always readily available, this report includes an eGFR for both -Americans and non- Americans. The National Kidney Disease Education Program (NKDEP) does not endorse the use of the MDRD equation for patients that are not between the ages of 18 and 70, are , have extremes of body size, muscle mass, or nutritional status, or are non- or non-. According to the National Kidney Foundation, irrespective of diagnosis, the stage of the disease is based on the level of kidney function: Stage Description GFR(mL/min/1.73 m(2)) 1 Kidney damage with normal or decreased GFR 90 2 Kidney damage with mild decrease in GFR 60-89 3 Moderate decrease in GFR 30-59 4 Severe decrease in GFR 15-29 5 Kidney failure <15 (or dialysis) 2 REFERENCE VALUE <=1.0 (Negative) Test Performed by: [facility] [address] [place] [address] 3 REFERENCE VALUE <15.0 (Negative) Test Performed by: [facility] [address] [place] [address] 4 REFERENCE VALUE <15.0 (Negative) 5 REFERENCE VALUE <15.0 (Negative) Test Performed by: [place] [address] [place] [address] 6 Test Performed by: [facility] [address] [place] [address] 7 Test Performed by: [facility] - [address] [id number] 8 Test Performed by: [facility] - [address] [address] 9 ADDITIONAL INFORMATION This test was developed and its performance characteristics determined by [facility] in a manner consistent with CLIA requirements. This test has not been cleared or approved by the U.S. Food and Drug Administration. Test Performed by: [address] [id number] 10 Because ethnic data is not always readily available, this report includes an eGFR for both -Americans and non- Americans. The National Kidney Disease Education Program (NKDEP) does not endorse the use of the MDRD equation for patients that are not between the ages of 18 and 70, are , have extremes of body size, muscle mass, or nutritional status, or are non- or non-. According to the National Kidney Foundation, irrespective of diagnosis, the stage of the disease is based on the level of kidney function: Stage Description GFR(mL/min/1.73 m(2)) 1 Kidney damage with normal or decreased GFR 90 2 Kidney damage with mild decrease in GFR 60-89 3 Moderate decrease in GFR 30-59 4 Severe decrease in GFR 15-29 5 Kidney failure <15 (or dialysis) 11 SEE RESULT BELOW Name: JOESPH MAYFIELD : [address]: Clifford Puentes III, MD Acct: [id number] Unit: [id number] AGE: 87 Location: LAB Re10/30/17 SEX: M Status: REG REF SPEC: [id number] FACUNDO: 10/30/17 [facility] DR: Davy PARNELL REQ: [id number] RECD: 10/30/17 STATUS: ETHAN SUAREZ DR: Clifford Puentes III, MD _ SOURCE: URINE SPDESC: ORDERED: Urine Culture Procedure Result Reported Site Urine Culture Final 10/31/17- 0855 ML No Growth (<1,000 CFU/mL) * ML - Main Lab . END OF REPORT DEPARTMENT OF PATHOLOGY, [address] [place] [address] Placido Wu M.D. Director [facility] # [id number] 12 Because ethnic data is not always readily available, this report includes an eGFR for both -Americans and non- Americans. The National Kidney Disease Education Program (NKDEP) does not endorse the use of the MDRD equation for patients that are not between the ages of 18 and 70, are , have extremes of body size, muscle mass, or nutritional status, or are non- or non-. According to the National Kidney Foundation, irrespective of diagnosis, the stage of the disease is based on the level of kidney function: Stage Description GFR(mL/min/1.73 m(2)) 1 Kidney damage with normal or decreased GFR 90 2 Kidney damage with mild decrease in GFR 60-89 3 Moderate decrease in GFR 30-59 4 Severe decrease in GFR 15-29 5 Kidney failure <15 (or dialysis) 13 Desirable: <150 Borderline High: 150-199 High: 200-499 Very High: >500 14 Desirable: <200 Borderline High: 200-239 High: >239 15 Low: <40 Desirable: 40-60 High: >60 16 Desirable: <100 Near Optimal: 100-129 Borderline High: 130-159 High: 160-189 Very High: >189 17 Therapeutic target for the treatment of diabetes mellitus patients is <7% HBA1C, and in selective patients <6.0%. Please refer to [place] [employer] diabetic care guidelines for further information. 18 Because ethnic data is not always readily available, this report includes an eGFR for both -Americans and non- Americans. The National Kidney Disease Education Program (NKDEP) does not endorse the use of the MDRD equation for patients that are not between the ages of 18 and 70, are , have extremes of body size, muscle mass, or nutritional status, or are non- or non-. According to the National Kidney Foundation, irrespective of diagnosis, the stage of the disease is based on the level of kidney function: Stage Description GFR(mL/min/1.73 m(2)) 1 Kidney damage with normal or decreased GFR 90 2 Kidney damage with mild decrease in GFR 60-89 3 Moderate decrease in GFR 30-59 4 Severe decrease in GFR 15-29 5 Kidney failure <15 (or dialysis) 19 Desirable <150 Borderline high 150-199 High 200-499 Very High >500 20 Desirable <200 Borderline high 200-239 High >239 21 Low <40 Desirable: 40-60 High: >60 22 Desirable: <100 mg/dL Near Optimal: 100-129 mg/dL Borderline High: 130-159 mg/dL High: 160-189 mg/dL Very High: >189 mg/dL 23 Therapeutic target for the treatment of diabetes Mellitus patients is <7% HBA1C, and in selective patients <6.0%.Please refer to [place] [employer] Diabetic care guidelines for further information. 24 [place]: [id number] CL MONAE 25 [place]: [id number] KATE ORANTES 26 FASTING 10 HOUR 27 Because ethnic data is not always readily available, this report includes an eGFR for both -Americans and non- Americans. The National Kidney Disease Education Program (NKDEP) does not endorse the use of the MDRD equation for patients that are not between the ages of 18 and 70, are , have extremes of body size, muscle mass, or nutritional status, or are non- or non-. According to the National Kidney Foundation, irrespective of diagnosis, the stage of the disease is based on the level of kidney function: Stage Description GFR(mL/min/1.73 m(2)) 1 Kidney damage with normal or decreased GFR 90 2 Kidney damage with mild decrease in GFR 60-89 3 Moderate decrease in GFR 30-59 4 Severe decrease in GFR 15-29 5 Kidney failure <15 (or dialysis) 28 Therapeutic target for the treatment of diabetes Mellitus patients is <7% HBA1C, and in selective patients <6.0%.Please refer to [place] [employer] Diabetic care guidelines for further information. 29 Because ethnic data is not always readily available, this report includes an eGFR for both -Americans and non- Americans. The National Kidney Disease Education Program (NKDEP) does not endorse the use of the MDRD equation for patients that are not between the ages of 18 and 70, are , have extremes of body size, muscle mass, or nutritional status, or are non- or non-. According to the National Kidney Foundation, irrespective of diagnosis, the stage of the disease is based on the level of kidney function: Stage Description GFR(mL/min/1.73 m(2)) 1 Kidney damage with normal or decreased GFR 90 2 Kidney damage with mild decrease in GFR 60-89 3 Moderate decrease in GFR 30-59 4 Severe decrease in GFR 15-29 5 Kidney failure <15 (or dialysis) 30 Acute inflammation: >10.00 31 FASTING 32 Desirable <150 Borderline high 150-199 High 200-499 Very High >500 33 Desirable <200 Borderline high 200-239 High >239 34 Low <40 Desirable: 40-60 High: >60 35 Desirable: <100 mg/dL Near Optimal: 100-129 mg/dL Borderline High: 130-159 mg/dL High: 160-189 mg/dL Very High: >189 mg/dL 36 Because ethnic data is not always readily available, this report includes an eGFR for both -Americans and non- Americans. The National Kidney Disease Education Program (NKDEP) does not endorse the use of the MDRD equation for patients that are not between the ages of 18 and 70, are , have extremes of body size, muscle mass, or nutritional status, or are non- or non-. According to the National Kidney Foundation, irrespective of diagnosis, the stage of the disease is based on the level of kidney function: Stage Description GFR(mL/min/1.73 m(2)) 1 Kidney damage with normal or decreased GFR 90 2 Kidney damage with mild decrease in GFR 60-89 3 Moderate decrease in GFR 30-59 4 Severe decrease in GFR 15-29 5 Kidney failure <15 (or dialysis) 37 Acute inflammation: >10.00 38 Acute inflammation: >10.00 39 Because ethnic data is not always readily available, this report includes an eGFR for both -Americans and non- Americans. The National Kidney Disease Education Program (NKDEP) does not endorse the use of the MDRD equation for patients that are not between the ages of 18 and 70, are , have extremes of body size, muscle mass, or nutritional status, or are non- or non-. According to the National Kidney Foundation, irrespective of diagnosis, the stage of the disease is based on the level of kidney function: Stage Description GFR(mL/min/1.73 m(2)) 1 Kidney damage with normal or decreased GFR 90 2 Kidney damage with mild decrease in GFR 60-89 3 Moderate decrease in GFR 30-59 4 Severe decrease in GFR 15-29 5 Kidney failure <15 (or dialysis) 40 FASTING 41 Acute inflammation: >10.00 42 Therapeutic target for the treatment of diabetes Mellitus patients is <7% HBA1C, and in selective patients <6.0%.Please refer to [place] [employer] Diabetic care guidelines for further information. 43 RUN DATE: 12/19/13 LAB LIVE PAGE 1 RUN TIME: [address] [place] [id number] Specimen Inquiry Name: JOESPH MAYFIELD : [address]: Clifford Puentse III, MD Acct: [id number] Unit: [id number] AGE: 83 Location: [facility] Re12/17/13 SEX: M Status: REG REF SPEC: [id number] FACUNDO: 12/17/13-[address]: Clifford Puentes III, MD REQ: [id number] RECD: 12/17/13-3475 STATUS: COMP _ SOURCE: WOUND SPDESC:WOUND ORDERED: Culture Stain QUERIES: Medent Number [id number] Specimen Description SKIN PUSTULE Procedure Result Verified Site Wound/Misc Gram Stain Final 12/18/13- 0805 ML 1+ Epithelial Cells 1+ Nucleated Cells No Polys Observed No Organisms Seen Wound/Misc Culture Final 12/19/13- 1114 ML No Growth Day 2 END OF REPORT * ML=Testing performed at Main Lab DEPARTMENT OF PATHOLOGY, [address] [place] [address] Placido Wu M.D. Director [facility] # [id number] 44 Because ethnic data is not always readily available, this report includes an eGFR for both -Americans and non- Americans. The National Kidney Disease Education Program (NKDEP) does not endorse the use of the MDRD equation for patients that are not between the ages of 18 and 70, are , have extremes of body size, muscle mass, or nutritional status, or are non- or non-. According to the National Kidney Foundation, irrespective of diagnosis, the stage of the disease is based on the level of kidney function: Stage Description GFR(mL/min/1.73 m(2)) 1 Kidney damage with normal or decreased GFR 90 2 Kidney damage with mild decrease in GFR 60-89 3 Moderate decrease in GFR 30-59 4 Severe decrease in GFR 15-29 5 Kidney failure <15 (or dialysis) 45 Therapeutic target for the treatment of diabetes Mellitus patients is <7% HBA1C, and in selective patients <6.0%.Please refer to [place] [employer] Diabetic care guidelines for further information. 46 Acute inflammation: >10.00 47 Acute inflammation: >10.00 48 Because ethnic data is not always readily available, this report includes an eGFR for both -Americans and non- Americans. The National Kidney Disease Education Program (NKDEP) does not endorse the use of the MDRD equation for patients that are not between the ages of 18 and 70, are , have extremes of body size, muscle mass, or nutritional status, or are non- or non-. According to the National Kidney Foundation, irrespective of diagnosis, the stage of the disease is based on the level of kidney function: Stage Description GFR(mL/min/1.73 m(2)) 1 Kidney damage with normal or decreased GFR 90 2 Kidney damage with mild decrease in GFR 60-89 3 Moderate decrease in GFR 30-59 4 Severe decrease in GFR 15-29 5 Kidney failure <15 (or dialysis) 49 Because ethnic data is not always readily available, this report includes an eGFR for both -Americans and non- Americans. The National Kidney Disease Education Program (NKDEP) does not endorse the use of the MDRD equation for patients that are not between the ages of 18 and 70, are , have extremes of body size, muscle mass, or nutritional status, or are non- or non-. According to the National Kidney Foundation, irrespective of diagnosis, the stage of the disease is based on the level of kidney function: Stage Description GFR(mL/min/1.73 m(2)) 1 Kidney damage with normal or decreased GFR 90 2 Kidney damage with mild decrease in GFR 60-89 3 Moderate decrease in GFR 30-59 4 Severe decrease in GFR 15-29 5 Kidney failure <15 (or dialysis) 50 HDL Interpretation: Undesirable: High Risk: Less than 40 mg/dL Desirable: Low Risk: Greater than 60 mg/dL 51 LDL Interpretation: Low Risk Optimal Level: LDL Less than 100 mg/dL Near or Above Optimal: LDL 100-129 mg/dL Borderline High Risk: LDL 130-159 mg/dL High Risk: LDL 160-189 mg/dL Very High Risk: LDL Greater than 189 mg/dL 52 Microalbuminuria in a random sample is defined as: Microalbumin/Creatinine ratio of 30-299 ug/mg. 53 Desirable: Less than 200 MG/DL Borderline-High Risk: 200-239 MG/DL High-Risk: 240 MG/DL and over 54 HDL Interpretation: Undesirable: High Risk: Less than 40 MG/DL Desirable: Low Risk: Greater than 60 MG/DL 55 LDL Interpretation: Low Risk Optimal Level: LDL Less than 100 MG/DL Near or Above Optimal: LDL 100-129 MG/DL Borderline High Risk: LDL 130-159 MG/DL High Risk: LDL 160-189 MG/DL Very High Risk: LDL Greater than 189 MG/DL 56 Because ethnic data is not always readily available, this report includes an eGFR for both -Americans and non- Americans. The National Kidney Disease Education Program (NKDEP) does not endorse the use of the MDRD equation for patients that are not between the ages of 18 and 70, are , have extremes of body size, muscle mass, or nutritional status, or are non- or non-. According to the National Kidney Foundation, irrespective of diagnosis, the stage of the disease is based on the level of kidney function: Stage Description GFR(mL/min/1.73 m(2)) 1 Kidney damage with normal or decreased GFR 90 2 Kidney damage with mild decrease in GFR 60-89 3 Moderate decrease in GFR 30-59 4 Severe decrease in GFR 15-29 5 Kidney failure <15 (or dialysis) 57 Therapeutic target for the treatment of diabetes Mellitus patients is <7% HBA1C, and in selective patients <6.0%.Please refer to [place] [employer] Diabetic care guidelines for further information. 58 Microalbuminuria in a random sample is defined as: Microalbumin/Creatinine ratio of 30-299 ug/mg. 59 Anion gap measurement may be of limited value in the presence of any alkalosis, especially in a combined acid base disorder. . 60 A metabolite of Naproxen, O-desmethylnaproxen, has been shown to interfere with the Jendrassik-Galen method for measuring total bilirubin. Samples from patients who have taken Naproxen have shown spurious elevation in total bilirubin levels. 61 Because ethnic data is not always readily available, this report includes an eGFR for both -Americans and non- Americans. The National Kidney Disease Education Program (NKDEP) does not endorse the use of the MDRD equation for patients that are not between the ages of 18 and 70, are , have extremes of body size, muscle mass, or nutritional status, or are non- or non-. According to the National Kidney Foundation, irrespective of diagnosis, the stage of the disease is based on the level of kidney function: Stage Description GFR(mL/min/1.73 m(2)) 1 Kidney damage with normal or decreased GFR 90 2 Kidney damage with mild decrease in GFR 60-89 3 Moderate decrease in GFR 30-59 4 Severe decrease in GFR 15-29 5 Kidney failure <15 (or dialysis) 62 CHOLESTEROL INTERPRETATION: Desirable: Less than 200 MG/DL Borderline-High Risk: 200-239 MG/DL High-Risk: 240 MG/DL and over 63 HDL INTERPRETATION: Undesirable: High Risk: Less than 40 MG/DL Desirable: Low Risk: Greater than 60 MG/DL 64 LDL INTERPRETATION: Low Risk Optimal Level: LDL Less than 100 MG/DL Near or Above Optimal: LDL 100-129 MG/DL Borderline High Risk: LDL 130-159 MG/DL High Risk: LDL 160-189 MG/DL Very High Risk: LDL Greater than 189 MG/DL 65 THERAPEUTIC TARGET FOR THE TREATMENT OF DIABETES MELLITUS PATIENTS IS <7% HBA1C, AND IN SELECTIVE PATIENTS <6.0%. PLEASE REFER TO [place] [employer]ATION DIABETIC CARE GUIDELINES FOR FURTHER INFORMATION. 66 Anion gap measurement may be of limited value in the presence of any alkalosis, especially in a combined acid base disorder. . 67 A metabolite of Naproxen, O-desmethylnaproxen, has been shown to interfere with the Jendrassik-Galen method for measuring total bilirubin. Samples from patients who have taken Naproxen have shown spurious elevation in total bilirubin levels. 68 Because ethnic data is not always readily available, this report includes an eGFR for both -Americans and non- Americans. The National Kidney Disease Education Program (NKDEP) does not endorse the use of the MDRD equation for patients that are not between the ages of 18 and 70, are , have extremes of body size, muscle mass, or nutritional status, or are non- or non-. According to the National Kidney Foundation, irrespective of diagnosis, the stage of the disease is based on the level of kidney function: Stage Description GFR(mL/min/1.73 m(2)) 1 Kidney damage with normal or decreased GFR 90 2 Kidney damage with mild decrease in GFR 60-89 3 Moderate decrease in GFR 30-59 4 Severe decrease in GFR 15-29 5 Kidney failure <15 (or dialysis) 69 CHOLESTEROL INTERPRETATION: Desirable: Less than 200 MG/DL Borderline-High Risk: 200-239 MG/DL High-Risk: 240 MG/DL and over 70 HDL INTERPRETATION: Undesirable: High Risk: Less than 40 MG/DL Desirable: Low Risk: Greater than 60 MG/DL 71 LDL INTERPRETATION: Low Risk Optimal Level: LDL Less than 100 MG/DL Near or Above Optimal: LDL 100-129 MG/DL Borderline High Risk: LDL 130-159 MG/DL High Risk: LDL 160-189 MG/DL Very High Risk: LDL Greater than 189 MG/DL 72 Lymphopenia % 73 Anion gap measurement may be of limited value in the presence of any alkalosis, especially in a combined acid base disorder. . 74 A metabolite of Naproxen, O-desmethylnaproxen, has been shown to interfere with the Jendrassik-Stroudsburg method for measuring total bilirubin. Samples from patients who have taken Naproxen have shown spurious elevation in total bilirubin levels. 75 Because ethnic data is not always readily available, this report includes an eGFR for both -Americans and non- Americans. The National Kidney Disease Education Program (NKDEP) does not endorse the use of the MDRD equation for patients that are not between the ages of 18 and 70, are , have extremes of body size, muscle mass, or nutritional status, or are non- or non-. According to the National Kidney Foundation, irrespective of diagnosis, the stage of the disease is based on the level of kidney function: Stage Description GFR(mL/min/1.73 m(2)) 1 Kidney damage with normal or decreased GFR 90 2 Kidney damage with mild decrease in GFR 60-89 3 Moderate decrease in GFR 30-59 4 Severe decrease in GFR 15-29 5 Kidney failure <15 (or dialysis) 76 CHOLESTEROL INTERPRETATION: Desirable: Less than 200 MG/DL Borderline-High Risk: 200-239 MG/DL High-Risk: 240 MG/DL and over 77 HDL INTERPRETATION: Undesirable: High Risk: Less than 40 MG/DL Desirable: Low Risk: Greater than 60 MG/DL 78 LDL INTERPRETATION: Low Risk Optimal Level: LDL Less than 100 MG/DL Near or Above Optimal: LDL 100-129 MG/DL Borderline High Risk: LDL 130-159 MG/DL High Risk: LDL 160-189 MG/DL Very High Risk: LDL Greater than 189 MG/DL 79 Lymphopenia % 80 THERAPEUTIC TARGET FOR THE TREATMENT OF DIABETES MELLITUS PATIENTS IS <7% HBA1C, AND IN SELECTIVE PATIENTS <6.0%. PLEASE REFER TO [place] [employer] DIABETIC CARE GUIDELINES FOR FURTHER INFORMATION. 81 MICROALBUMINURIA IN A RANDOM SAMPLE IS DEFINED : MICROALBUMIN/CREATININE RATIO OF 30-299 ug/mg. . 82 * SERUM LEVELS OF PSA MEASURED USING THE [employer] LEANDRA ACCESS HYBRITECH IMMUNOASSAY SHOULD NOT BE INTERPRETED ABSOLUTE EVIDENCE OF THE PRESENCE OR ABSENCE OF DISEASE. THE PSA VALUE SHOULD BE USED IN CONJUNCTION WITH OTHER PERTINENT CLINICAL DIAGNOSTIC PROCEDURES. A PSA value in the range of 0.1 to 0.6 ng/ml is indeterminate if being used as an indicator of recurrent or residual disease. . 83 ---- RUN DATE: 12/10/09 [facility] NMI LIVE PAGE 1 RUN TIME: 153 Specimen Inquiry RUN USER: INTERFACE -- Name: JOESPH MAYFIELD Status: REG REF Re12/09/09 Age/Sex: 79/M Unit#: [id number] Location: END : 07/12/29 -- Specimen: [id number] SOUT Spec Date: 12/08/[address]: Cristóbal moe MD Spec Type: SURGICAL P Received: 12/09/09-1310 Copies to: Clifford Puentes III, MD SPECIMEN BIOPSY POLYP AT 15 CM. HISTORY POST-OP DIAGNOSIS: Colonscopy to cecum, prep good, small sigmoid polyp, m ild sigmoid diverticulosis CLINICAL INFORMATION: History of colon polyps GROSS DESCRIPTION The specimen is received in formalin labelled Joesph Mayfield, Biopsy Polyp at 15 cm., and consists of one fragment of downing-brown tissue measuring 0.4 x 0.3 x 0.3 cm. Submitted entirely, one cassette. DIAGNOSIS Colon at 15 cm., biopsy: Hyperplastic polyp. Signed Electronically by: MUKUND MULLINS 12/10/09 1532 -- -- DEPARTMENT OF PATHOLOGY, [address] [place] [address] [facility] Permit #[id number] Placido Wu M.D. Director Mukund Mullins M.D. Amphibious Operations Officer Dir angeline -- 84 CHOLESTEROL INTERPRETATION: Desirable: Less than 200 MG/DL Borderline-High Risk: 200-239 MG/DL High-Risk: 240 MG/DL and over 85 HDL INTERPRETATION: Undesirable: High Risk: Less than 40 MG/DL Desirable: Low Risk: Greater than 60 MG/DL 86 LDL INTERPRETATION: Low Risk Optimal Level: LDL Less than 100 MG/DL Near or Above Optimal: LDL 100-129 MG/DL Borderline High Risk: LDL 130-159 MG/DL High Risk: LDL 160-189 MG/DL Very High Risk: LDL Greater than 189 MG/DL 87 THERAPEUTIC TARGET FOR THE TREATMENT OF DIABETES MELLITUS PATIENTS IS <7% HBA1C, AND IN SELECTIVE PATIENTS <6.0%. PLEASE REFER TO [place] [employer] DIABETIC CARE GUIDELINES FOR FURTHER INFORMATION. 88 Anion gap measurement may be of limited value in the presence of any alkalosis, especially in a combined acid base disorder. . 89 Note change in reference range as of 02/07/08. The change was based on recommendations from the [place] [employer]. 90 Please note change in reference range effective 07 . 91 Because ethnic data is not always readily available, this report includes an eGFR for both -Americans and non- Americans. The National Kidney Disease Education Program (NKDEP) does not endorse the use of the MDRD equation for patients that are not between the ages of 18 and 70, are , have extremes of body size, muscle mass, or nutritional status, or are non- or non-. According to the National Kidney Foundation, irrespective of diagnosis, the stage of the disease is based on the level of kidney function: Stage Description GFR(mL/min/1.73 m(2)) 1 Kidney damage with normal or decreased GFR 90 2 Kidney damage with mild decrease in GFR 60-89 3 Moderate decrease in GFR 30-59 4 Severe decrease in GFR 15-29 5 Kidney failure <15 (or dialysis) 92 Anion gap measurement may be of limited value in the presence of any alkalosis, especially in a combined acid base disorder. . 93 Note change in reference range as of 02/07/08. The change was based on recommendations from the [place] [employer]. 94 Please note change in reference range effective 07 . 95 A metabolite of Naproxen, O-desmethylnaproxen, has been shown to interfere with the Jendrassik-Stroudsburg method for measuring total bilirubin. Samples from patients who have taken Naproxen have shown spurious elevation in total bilirubin levels. 96 Because ethnic data is not always readily available, this report includes an eGFR for both -Americans and non- Americans. The National Kidney Disease Education Program (NKDEP) does not endorse the use of the MDRD equation for patients that are not between the ages of 18 and 70, are , have extremes of body size, muscle mass, or nutritional status, or are non- or non-. According to the National Kidney Foundation, irrespective of diagnosis, the stage of the disease is based on the level of kidney function: Stage Description GFR(mL/min/1.73 m(2)) 1 Kidney damage with normal or decreased GFR 90 2 Kidney damage with mild decrease in GFR 60-89 3 Moderate decrease in GFR 30-59 4 Severe decrease in GFR 15-29 5 Kidney failure <15 (or dialysis) 97 * SERUM LEVELS OF PSA MEASURED USING THE Memorop ACCESS HYBRITECH IMMUNOASSAY SHOULD NOT BE INTERPRETED ABSOLUTE EVIDENCE OF THE PRESENCE OR ABSENCE OF DISEASE. THE PSA VALUE SHOULD BE USED IN CONJUNCTION WITH OTHER PERTINENT CLINICAL DIAGNOSTIC PROCEDURES. A PSA value in the range of 0.1 to 0.6 ng/ml is indeterminate if being used as an indicator of recurrent or residual disease. . 98 CHOLESTEROL INTERPRETATION: Desirable: Less than 200 MG/DL Borderline-High Risk: 200-239 MG/DL High-Risk: 240 MG/DL and over 99 HDL INTERPRETATION: Undesirable: High Risk: Less than 40 MG/DL Desirable: Low Risk: Greater than 60 MG/DL 100 LDL INTERPRETATION: Low Risk Optimal Level: LDL Less than 100 MG/DL Near or Above Optimal: LDL 100-129 MG/DL Borderline High Risk: LDL 130-159 MG/DL High Risk: LDL 160-189 MG/DL Very High Risk: LDL Greater than 189 MG/DL 101 Anion gap measurement may be of limited value in the presence of any alkalosis, especially in a combined acid base disorder. . 102 Note change in reference range as of 02/07/08. The change was based on recommendations from the [place] [employer]. 103 Please note change in reference range effective 07 . 104 Because ethnic data is not always readily available, this report includes an eGFR for both -Americans and non- Americans. The National Kidney Disease Education Program (NKDEP) does not endorse the use of the MDRD equation for patients that are not between the ages of 18 and 70, are , have extremes of body size, muscle mass, or nutritional status, or are non- or non-. According to the National Kidney Foundation, irrespective of diagnosis, the stage of the disease is based on the level of kidney function: Stage Description GFR(mL/min/1.73 m(2)) 1 Kidney damage with normal or decreased GFR 90 2 Kidney damage with mild decrease in GFR 60-89 3 Moderate decrease in GFR 30-59 4 Severe decrease in GFR 15-29 5 Kidney failure <15 (or dialysis) 105 THERAPEUTIC TARGET FOR THE TREATMENT OF DIABETES MELLITUS PATIENTS IS <7% HBA1C, AND IN SELECTIVE PATIENTS <6.0%. PLEASE REFER TO [place] [employer] DIABETIC CARE GUIDELINES FOR FURTHER INFORMATION. 106 Note change in reference range as of 02/07/08. The change was based on recommendations from the [place] [employer]. 107 THERAPEUTIC TARGET FOR THE TREATMENT OF DIABETES MELLITUS PATIENTS IS <7% HBA1C, AND IN SELECTIVE PATIENTS <6.0%. PLEASE REFER TO [place] [employer] DIABETIC CARE GUIDELINES FOR FURTHER INFORMATION. 108 CHOLESTEROL INTERPRETATION: Desirable: Less than 200 MG/DL Borderline-High Risk: 200-239 MG/DL High-Risk: 240 MG/DL and over 109 HDL INTERPRETATION: Undesirable: High Risk: Less than 40 MG/DL Desirable: Low Risk: Greater than 60 MG/DL 110 LDL INTERPRETATION: Low Risk Optimal Level: LDL Less than 100 MG/DL Near or Above Optimal: LDL 100-129 MG/DL Borderline High Risk: LDL 130-159 MG/DL High Risk: LDL 160-189 MG/DL Very High Risk: LDL Greater than 189 MG/DL 111 PATIENT MAY HAVE RESULTS PER DOCTOR'S AUTHORIZATION. Questions regarding this report should be directed to your doctor. FASTING 112 Anion gap measurement may be of limited value in the presence of any alkalosis, especially in a combined acid base disorder. . 113 Note change in reference range as of 02/07/08. The change was based on recommendations from the [place] [employer]. 114 Please note change in reference range effective 07 . 115 CHOLESTEROL INTERPRETATION: Desirable: Less than 200 MG/DL Borderline-High Risk: 200-239 MG/DL High-Risk: 240 MG/DL and over 116 HDL INTERPRETATION: Undesirable: High Risk: Less than 40 MG/DL Desirable: Low Risk: Greater than 60 MG/DL 117 LDL INTERPRETATION: Low Risk Optimal Level: LDL Less than 100 MG/DL Near or Above Optimal: LDL 100-129 MG/DL Borderline High Risk: LDL 130-159 MG/DL High Risk: LDL 160-189 MG/DL Very High Risk: LDL Greater than 189 MG/DL 118 THERAPEUTIC TARGET FOR THE TREATMENT OF DIABETES MELLITUS PATIENTS IS <7% HBA1C, AND IN SELECTIVE PATIENTS <6.0%. PLEASE REFER TO [place] [employer] DIABETIC CARE GUIDELINES FOR FURTHER INFORMATION. 119 PATIENT MAY HAVE RESULTS PER DOCTOR'S AUTHORIZATION. Questions regarding this report should be directed to your doctor. 120 CHOLESTEROL INTERPRETATION: Desirable: Less than 200 MG/DL Borderline-High Risk: 200-239 MG/DL High-Risk: 240 MG/DL and over 121 HDL INTERPRETATION: Undesirable: High Risk: Less than 40 MG/DL Desirable: Low Risk: Greater than 60 MG/DL 122 LDL INTERPRETATION: Low Risk Optimal Level: LDL Less than 100 MG/DL Near or Above Optimal: LDL 100-129 MG/DL Borderline High Risk: LDL 130-159 MG/DL High Risk: LDL 160-189 MG/DL Very High Risk: LDL Greater than 189 MG/DL 123 THERAPEUTIC TARGET FOR THE TREATMENT OF DIABETES MELLITUS PATIENTS IS <7% HBA1C, AND IN SELECTIVE PATIENTS <6.0%. PLEASE REFER TO [place] [employer] DIABETIC CARE GUIDELINES FOR FURTHER INFORMATION. 124 THERAPEUTIC TARGET FOR THE TREATMENT OF DIABETES MELLITUS PATIENTS IS <7% HBA1C, AND IN SELECTIVE PATIENTS <6.0%. PLEASE REFER TO [place] [employer] DIABETIC CARE GUIDELINES FOR FURTHER INFORMATION. 125 Lymphopenia % 126 Anion gap measurement may be of limited value in the presence of any alkalosis, especially in a combined acid base disorder. . 127 Classification: Desirable . 128 CALCULATED LDL APPROXIMATES THE VALUE OF A DIRECT LDL MEASUREMENT. Classification: Optimal Level . 129 * SERUM LEVELS OF PSA MEASURED USING THE [employer]op ACCESS HYBRITECH IMMUNOASSAY SHOULD NOT BE INTERPRETED ABSOLUTE EVIDENCE OF THE PRESENCE OR ABSENCE OF DISEASE. THE PSA VALUE SHOULD BE USED IN CONJUNCTION WITH OTHER PERTINENT CLINICAL DIAGNOSTIC PROCEDURES. A PSA value in the range of 0.1 to 0.6 ng/ml is indeterminate if being used as an indicator of recurrent or residual disease. . 130 Classification: Desirable . 131 Classification: Low . 132 CALCULATED LDL APPROXIMATES THE VALUE OF A DIRECT LDL MEASUREMENT. Classification: Optimal Level . 133 THERAPEUTIC TARGET FOR THE TREATMENT OF DIABETES MELLITUS PATIENTS IS <7% HBA1C, AND IN SELECTIVE PATIENTS <6.0%. PLEASE REFER TO [place] [employer] DIABETIC CARE GUIDELINES FOR FURTHER INFORMATION. Procedures Date CPT Code Description Status 10/10/2017 Diabetic Retinal Eye Exam Completed 03/21/2017 Diabetic Retinal Eye Exam Completed 10/04/2016 Diabetic Retinal Eye Exam Completed 04/02/2015 Diabetic Retinal Eye Exam Completed 12/24/2014 97773 EKG Tracing & Interpretation Completed 09/29/2014 Diabetic Retinal Eye Exam Completed 03/14/2014 Diabetic Retinal Eye Exam Completed 10/18/2010 43375 Noninvasive Ear Or Pulse Oximetry For Oxygen Saturation Completed 12/09/2009 Colonoscopy Completed 04/25/2005 Colonoscopy Completed Encounters Type Date Location Provider CPT E/M Dx Office Visit 11/08/2017 9:00a [facility] Clifford Puentes, 13899 E11.9 - Esme Toledo I10 I25.10 Office Visit 10/09/2017 9:00a [facility] Clifford Puentes, 89631 I25.10 - Esme Toledo E11.9 I10 Office Visit 03/27/2017 9:30a [facility] Ashley Abdul, 59113 S67.197A Of Ruth [place] S62.637A Office Visit 03/23/2017 2:40p [facility] Clifford Puentes, 92118 S67.197A - [place] S62.637A Office Visit 10/05/2016 9:00a [facility] Clifford Puentes, 40988 E11.9 - [place] I10 Office Visit 11/09/2015 11:00a [facility] Clifford Puentes, 08691 Z01.810 - Haylie Toledo H26.9 E11.40 I10 Office Visit 10/22/2015 10:20a [facility] Clifford Puentes, 65931 E11.40 - Haylie [place] I10 Office Visit 01/19/2015 3:00p [facility] [place] [address] 339.83 Services Of [facility] 250.60 Office Visit 12/24/2014 1:00p [facility] Clifford Puentes, 69325 V72.81 - Haylie [place] 401.1 250.00 784.0 Office Visit 11/19/2014 10:00a [facility] Clifford Puentes, 70021 401.1 - Haylie [place] Office Visit 11/07/2014 10:20a [facility] Clifford Puentes, 90239 784.0 - Haylie [place] 401.1 Office Visit 09/29/2014 10:20a [facility] Clifford Puentes, 11188 715.94 - Haylie [place] 250.00 401.1 272.0 Office Visit 04/30/2014 9:20a [facility] Clifford Puentes, 98524 729.5 - Haylie [place] Office Visit 04/22/2014 10:00a [facility] Clifford Puentes, 27710 250.00 - Crockett M.D. v04.81 v03.82 401.1 725 Office Visit 02/12/2014 1:20p [facility] - Clifford Puentes, 86171 725 Haylie [place] 250.00 Office Visit 12/17/2013 11:40a [facility] Clifford FannyLina Puentes, 00545 782.1 - [place]ckett M.DLina Office Visit 12/02/2013 2:20p [facility] Clifford FannyLina Puentes, 39493 250.00 - [place]ck[place] M.DLina 725 Office Visit 11/21/2013 11:00a [facility] Clifford Puentes, 62665 V70.0 - [place]ett Nasreen.DLina 250.00 725 401.1 272.0 600.20 Office Visit 11/05/2013 11:40a [facility] - Clifford Puentes, 16757 725 Haylie Downey.Liliana 780.79 401.1 Office Visit 09/24/2013 2:00p [facility] Clifford Puentes, 38931 729.1 - Crockett M.DLina Office Visit 05/06/2013 10:20a [facility] Clifford Puentes, 72969 250.00 - Crockett M.DLina 401.1 v04.81 Office Visit 01/24/2013 11:40a [facility] Clifford Puentes, 15975 401.1 - Crockett M.DLina 729.5 Office Visit 01/01/2013 4:00p [facility] Clifford Puentes, 24927 729.5 - Crockett M.DLina 401.1 Office Visit 04/27/2012 10:00a [facility] Clifford Puentes, 27446 250.00 - Haylie Downey.DLina 401.1 272.0 Office Visit 11/02/2011 9:20a [facility] Clifford Puentes, 70552 250.00 - Crockett M.DLina 401.1 V04.89 Office Visit 05/02/2011 1:40p DO Not Use [employer] AT Clifford Puentes, 51998 250.00 Jaclyn Downey.Liliana 272.0 401.1 Office Visit 03/25/2011 11:40a DO Not Use [employer] AT Clifford Puentes, 26866 782.1 Jaclyn Downey.Liliana Office Visit 03/15/2011 1:45p DO Not Use [employer] AT [facility] 07715 695.11 [facility] V04.81 Office Visit 02/03/2011 10:30a DO Not Use [employer] AT [facility] 01002 708.9 [facility] Office Visit 12/08/2010 9:00a DO Not Use [employer] [facility], 42147 V70.0 [facility] 401.1 250.00 723.1 Office Visit 10/18/2010 2:00p DO Not Use [employer] AT [facility] 08291 466.0 [facility] Office Visit 04/19/2010 3:40p DO Not Use [employer] [facility] AT [facility], 32007 V04.81 [facility] 401.1 Office Visit 03/17/2010 11:20a DO Not Use [employer] AT [facility], 81387 401.1 [facility]. Office Visit 02/26/2010 11:20a DO Not Use [employer] AT [facility], 86046 250.00 [facility] Office Visit 10/19/2009 11:00a DO Not Use [employer] AT [facility], 22679 530.81 [facility] 401.1 250.00 272.0 Office Visit 04/21/2009 2:00p DO Not Use [employer] AT [facility], 89869 250.00 [facility] 272.0 Office Visit 12/31/2008 2:15p [facility], 40414 250.00 [facility] M.D. 401.1 Office Visit 10/09/2008 10:30a [facility], 51946 250.00 [facility] M.D. 401.1 Office Visit 04/29/2008 9:30a [facility], 39677 250.00 [facility].D. 272.0 401.1 V06.5 Office Visit 11/07/2007 3:15p [facility], 52727 V72.81 [facility]00 401.1 272.0 Office Visit 05/01/2007 9:00a [facility] AT Clifford Puentes, 25136 250.00 [facility] Tre 272.0 401.1 V04.81 Plan of Care 02/15/2018 - Clifford Puentes M.D.I10 Essential (primary) hypertensionComments: Home BPs 120s-130s/70s. 118/70 with [facility] recheck in October. 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
[2018-03-07] MEDS ORDERED: Acetaminophen TAB* 325 MG PO ONE (13:42)
[2018-03-07] MEDS ORDERED: Ondansetron INJ* 2 MG/ML VIAL IV ONE (14:04)
--- NOTE | 2018-03-07 14:14 | ED ---
Lower Extremity - HPI Summary HPI Summary: This patient is an 87 year old M BIBA to ED with a chief complaint of L hip pain since 0900 this morning. He called his at 1100 to ask for crutches. The CC is described as a gradual onset. The patient was simply standing out on the lawn and denies any fall, heavy lifting, or bending over or trauma. Patient took Tylenol x1 at 1200. The patient rates the pain 10/10 in severity. Symptoms aggravated by movement. Symptoms alleviated by nothing. Patient reports dizziness and nausea (secondary to pain). Patient denies lower back pain, CP, SOB, KOWNG, abdominal pain, and fever. PMHx of heart stents and HTN. The patient was 10 years old when he had an ankle injury that caused his L leg to be 0.75 inch shorter than the R. Patient was a former smoker (60 years ago). Current vitals include 60 BPM, 98 O2 sat, and BP 142/77. Home Medications Medication Instructions Recorded Confirmed Type Hydrochlorothiazide TAB* 25 mg PO DAILY 11/20/15 12/09/15 History [Hydrodiuril TAB*] Ipratropium [place] (Nasal) 1 spray NASAL DAILY 11/20/15 12/09/15 History Irbesartan [Avapro] 300 mg PO DAILY 11/20/15 12/09/15 History metFORMIN* [Glucophage 1000 MG TAB 1,000 mg PO DAILY 11/20/15 12/09/15 History *] [place]well-3/Dha/Epa/Fish Oil [Fish Oil] 1,000 mg PO DAILY 11/25/15 12/09/15 History Cephalexin CAP* [Keflex CAP*] 500 mg PO BID #13 cap 03/15/17 Rx - History of Current Complaint Stated Complaint: LT HIP PAIN Time Seen by Provider: 03/07/18 13:42 Hx Obtained From: Patient, Family/Cleaner Mechanism Of Injury: Other - no known injury Onset of Pain: Hours - since 0900 this morning Onset/Duration: Still Present Severity Initially: Moderate Severity Currently: Severe Pain Intensity: 10 Pain Scale Used: 0-10 Numeric Timing: Constant - gradual onset, Lasting Hours Location: Is Discrete @ - L hip Character Of Pain: Sharp Associated Signs And Symptoms: Positive: Other - Patient reports dizziness and nausea (secondary to pain). Patient denies lower back pain, CP, SOB, KWONG, abdominal pain, and fever. Aggravating Factor(s): Movement Alleviating Factor(s): Nothing Able to Bear Weight: No - Allergies/Home Medications Allergies/Adverse Reactions: Allergies Allergy/AdvReac Type Severity Reaction Status Date / Time MS CI Pigment Blue 63 Allergy Muscle Ache Verified 03/07/18 14:47 [From Bystolic] MS Nebivolol [From Bystolic] Allergy Muscle Ache Verified 03/07/18 14:47 MS Olmesartan [From Benicar] Allergy Muscle Ache Verified 03/07/18 14:47 MS Ramipril [Ramipril] Allergy Muscle Ache Verified 03/07/18 14:47 MS Sorbitan [From Bystolic] Allergy Muscle Ache Verified 03/07/18 14:47 MS Sulfa Antibiotics Allergy Rash And Verified 03/07/18 14:47 [Sulfa Antibiotics] Itching MS Timolol [Timolol] Allergy Difficulty Verified 03/07/18 14:47 Breathing MS Yellow Dye [From Bystolic] Allergy Muscle Ache Verified 03/07/18 14:47 Home Medications: Home Medications Aspirin EC TAB* [Ecotrin EC Low Dose 81 MG*] 81 mg PO DAILY 03/07/18 [History Confirmed 03/07/18] Atorvastatin* [Lipitor*] 80 mg PO 1700 03/07/18 [History Confirmed 03/07/18] Clopidogrel TAB* [Plavix TAB*] 75 mg PO DAILY 03/07/18 [History Confirmed ] amLODIPine TAB* [Norvasc 5 mg TAB*] 2.5 mg PO DAILY 03/07/18 [History Confirmed 03/07/18] PMH/Surg Hx/FS Hx/Imm Hx Previously Healthy: No Endocrine/Hematology History: Reports: Hx Diabetes - TAKES METFORMIN Denies: Hx Thyroid Disease Cardiovascular History: Reports: Hx Hypertension - TAKES MEDS Respiratory History: Denies: Hx Asthma, Hx Sleep Apnea GI History: Denies: Hx Gastroesophageal Reflux Disease, Hx Irritable Bowel Musculoskeletal History: Denies: Hx Arthritis Sensory History: Reports: Hx Contacts or Glasses - READING GLASSES Denies: Hx Hearing Aid Opthamlomology History: Reports: Hx Contacts or Glasses - READING GLASSES Neurological History: Denies: Hx Headaches, Hx Migraine, Hx Seizures Psychiatric History: Denies: Hx Anxiety, Hx Depression - Surgical History Surgery Procedure, Year, and Place: RIGHT EYE Hx Anesthesia Reactions: No Infectious Disease History: No Infectious Disease History: Denies: Traveled Outside the [place] in Last 30 Days - Family History Known Family History: Positive: Cardiac Disease, Hypertension, Diabetes - Social History Lives: With Family Alcohol Use: Rare Substance Use Type: Reports: None Smoking Status (MU): Former Smoker Review of Systems Negative: Fever Negative: Chest Pain Negative: Shortness Of Breath Positive: Nausea - secondary to pain. Negative: Abdominal Pain Positive: Other - denies lower back pain Neurological: Other - dizziness Negative: Headache Psychological: Normal All Other Systems Reviewed And Are Negative: Yes Physical Exam - Summary Physical Exam Summary: Appearance: Well-appearing, severe pain distress, well-nourished Skin: Warm, color reflects adequate perfusion, dry Head: Normal Head/Face inspection, atraumatic Eyes: Conjunctiva clear ENT: Normal inspection Neck: Supple, no nodes, no JVD Respiratory: Lungs clear, normal breath sounds, no respiratory distress Cardio: RRR, No murmur, pulses normal, brisk capillary refill Abdomen: Soft, nontender, no masses, no guarding, no rebound, nondistended Bowel sounds: Present Musculoskeletal: No calf tenderness, no edema. Tender in the left greater trochanter area with no bruising or deformity. Able to lift the leg off the stretcher rotate his hip while lying down, can bend his knees, dorsiflex, plantar flex; Has pain at left greater trochanter immediately with standing. Back no bruising, no spinal tenderness. Psychological: Normal Neuro: Alert, muscle tone normal, no focal deficit except pain with ambulation Triage Information Reviewed: Yes Vital Signs On Initial Exam: Initial Vitals Temp Pulse Resp BP Pulse Ox 98.0 F 60 18 142/77 98 03/07/18 13:50 03/07/18 13:50 03/07/18 13:50 03/07/18 13:50 03/07/18 13:50 Vital Signs Reviewed: Yes Diagnostics - Laboratory Result Diagrams: 03/07/18 14:03 03/07/18 14:03 Lab Statement: Any lab studies that have been ordered have been reviewed, and results considered in the medical decision making process. - Radiology L Hip/Pelvis XR Radiology Interpretation Completed By: Radiologist - Degenerative changes of the left hip as described above without radiographically apparent acute fracture or dislocation. ED physician has reviewed this radiology report. CXR Radiology Interpretation Completed By: Radiologist - No radiographic evidence for acute cardiopulmonary abnormality on this portable chest x-ray. ED physician has reviewed this radiology report. - CT L-spine CT CT Interpretation Completed By: Radiologist - 25% compression of L1 vertebra age indeterminate but no paravertebral soft tissue swelling is noted. Multilevel degenerative disc disease at L2-L3, L3-L4 and L4-L5 is noted with broad-based protrusion flattening the thecal sac. ED physician has reviewed this radiology report. Pelvic CT CT Interpretation Completed By: Radiologist - No fracture of the pelvis or left hip is noted. ED physician has reviewed this radiology report. - EKG 1423 Cardiac Rate: NL - 66 BPM EKG Rhythm: Sinus Rhythm - 1st degree AV block, prolonged IVCT nonspecific (112) , nml QTc, left axis -24 ST Segment: Non-Specific EKG Comparison: No Significant Change - from 01/24/05 Re-Evaluation - Re-Evaluation First Eval Re-Evaluation Time: 15:26 Change: Unchanged Comment: Discussed results with the patient and consult with Dr. Crowell. Second Eval Re-Evaluation Time: 15:42 Change: Worse Comment: The patient has pain when he walks. Therefore, we will order a CT. Third Eval Re-Evaluation Time: 17:33 Change: Improved Comment: Discussed results with the patient and plan for discharge. Patient understands and agrees with this plan. Current vitals are 132/96 and pulse is 78 BPM. Lower Extremity Course/Dx - Course Assessment/Plan: This patient is an 87 year old M BIBA to ED with a chief complaint of L hip pain since 0900 this morning. L hip/pelvis XR reveals degenerative changes of the left hip as described above without radiographically apparent acute fracture or dislocation. CXR reveals no radiographic evidence for acute cardiopulmonary abnormality on this portable chest x-ray. EKG done at 1423 reveals NSR at 66 BPM, 1st degree AV block, prolonged IVCT nonspecific (112), nml QTc, left axis -24, and no significant change from 01/24/05. L-spine CT reveals 25% compression of L1 vertebra age indeterminate but no paravertebral soft tissue swelling is noted. Multilevel degenerative disc disease at L2-L3, L3-L4 and L4-L5 is noted with broad-based protrusion flattening the thecal sac. Pelvic CT reveals no fracture of the pelvis or left hip is noted. Pt believes the compression fracture is old, recalls being told he had this in the past. The patient will be discharged with dx of L hip pain, degenerative arthritis, and compression fracture of L1. Patient understands and agrees with this plan. He will follow up with Dr. Crowell on 03/09/18 at 0800. - Diagnoses Differential Diagnosis/HQI/PQRI: Positive: Bursitis, Contusion, Dislocation, Fracture (Closed), Sprain, Strain, Tenosynovitis Provider Diagnoses: Left hip pain, Degenerative arthritis, Compression fracture of L1 lumbar vertebra - Physician Notifications Discussed Care Of Patient With: Eulalia Crowell Time Discussed With Above Provider: 15:22 Instructed by Provider To: Other - Consulted Dr. Crowell about the patient's case and she says to see if he can bear weight before dispo. If not able to bear weight, do CT. If no fx, she will see him in follow up on 03/09/18. Discharge - Sign-Out/Discharge Documenting (check all that apply): Patient Departure - Discharge Plan Condition: Stable Disposition: HOME Patient Education Materials: Vertebral Compression Fracture (ED), Hip Pain (ED) Referrals: Eulalia Crowell MD [Medical Doctor] - 2 Days (Dr. Crowell will see you in her office on 03/09/18 at 0800. ) Clifford Puentes MD [Primary Care Provider] - 2 Days Additional Instructions: Dr. Crowell wants you to use a walker for ambulating, with weight bearing as tolerated. You may take acetaminophen for pain. Return to the ER if you have new or worsening symptoms. - Billing Disposition and Condition Condition: STABLE Disposition: Home - Attestation Statements Document Initiated by Isabelae: Yes Documenting Scribe: Elliott La Provider For Whom Kyra is Documenting (Include Credential): Aileen Courtney MD Scribe Attestation: Elliott Howard, scribed for Aileen Courtney MD on 03/12/18 at 5227. Scribe Documentation Reviewed: Yes Provider Attestation: The documentation as recorded by the Elliott stinson accurately reflects the service I personally performed and the decisions made by me, Aileen Courtney MD
[2018-03-07 14:16] LABS: ABS Basophils 0 10^3/ul (0-0.2); ABS Eosinophils 0.2 10^3/ul (0-0.6); ABS Lymphocytes 0.6 10^3/ul (1.0-4.8); ABS Monocytes 0.7 10^3/ul (0-0.8); ABS Neutrophils 6.6 10^3/ul (1.5-7.7); ABS Nucleated RBC 0 10^3/ul; Hematocrit 40 % (42-52); Hemoglobin 13.7 g/dl (14.0-18.0); Lymphocyte % 7.1 % (25-47); Mean Corpuscular HGB Conc 34 g/dl (31-36); Mean Corpuscular Hemoglobin 31 pg (27-31); Mean Corpuscular Volume 92 fL (80-94); Mean Platelet Volume 7.9 um3 (7.4-10.4); Nucleated Red Blood Cells % 0.1; Platelet Count 209 10^3/ul (150-450); Red Cell Distribution Width 15 % (10.5-15)
[2018-03-07 14:23] LABS: INR 0.94 (0.77-1.02)
[2018-03-07 14:32] LABS: EGFR Non-African American 55.5 (>60)
[2018-03-07] MEDS: Morphine VIAL* 10 MG/ML 1 ML VIAL IV ONE ×2 (14:35→14:38)
--- NOTE | 2018-03-07 14:52 | RAD ---
INDICATION: Left hip pain COMPARISON: Most recent comparison chest x-rays dated January 24, 2005 TECHNIQUE: Single AP portable view of the chest was obtained. FINDINGS: Image quality is compromised due to the relative inferiority of a portable chest x-ray. The heart and mediastinum exhibit normal size and contour. There is coarse calcification overlying the arch of the aorta. The lungs are grossly clear. There is no evidence of a large pleural effusion. Visualized bones are normal for the patient's age. IMPRESSION: No radiographic evidence for acute cardiopulmonary abnormality on this portable chest x-ray.
--- NOTE | 2018-03-07 14:54 | RAD ---
INDICATION: Left hip pain. COMPARISON: None TECHNIQUE: 3 views of the left hip were obtained. FINDINGS: The visualized bones of the left hip are well-corticated and properly aligned. Degenerative changes of the bilateral hips include sclerotic change of the acetabular roof and marginal osteophyte formationThere is no radiographic evidence of acute fracture or dislocation. Incidentally noted is coarse atherosclerotic calcification overlying the bilateral iliac arteries and bilateral visualized femoral arteries. IMPRESSION: Degenerative changes of the left hip as described above without radiographically apparent acute fracture or dislocation. If the patient's symptoms persist follow-up imaging is recommended.
--- NOTE | 2018-03-07 16:37 | RAD ---
Indication: Left hip pain with weightbearing. CT of the lumbar spine was obtained in the axial plane. Sagittal and coronal reconstructed images were obtained. There is mild compression of the L1 vertebra of approximately 25%. No evidence of perivertebral soft tissue swelling is noted. This is likely old. At L2-L3 spondylitic ridge flattens the thecal sac. No central or foraminal stenosis is noted. At L3-L4 spondylitic ridge which flattens the thecal sac facet arthropathy is noted. No definite foraminal stenosis is noted. At L4-L5 degenerative disc disease with spondylytic ridge flattening the thecal sac. No foraminal stenosis is noted although bilateral facet hypertrophy is noted. At L5-S1 broad-based protrusion is noted. No definite central or foraminal stenosis is noted. No rib fractures are noted. Ectasia of the abdominal aorta and common iliac arteries are noted. IMPRESSION: 25% compression of L1 vertebra age indeterminate but no paravertebral soft tissue swelling is noted. Multilevel degenerative disc disease at L2-L3, L3-L4 and L4-L5 is noted with broad-based protrusion flattening the thecal sac.
--- NOTE | 2018-03-07 17:13 | RAD ---
Indication: Left hip pain with weightbearing. CT of the pelvis performed in the axial plane. Sagittal and coronal reconstructed images were obtained. The pelvic ring is intact. No definite fracture is noted. The inferior pubic ramus is otherwise unremarkable. Degenerative changes of the left hip joint is noted. The left femoral head and neck demonstrates no evidence of fracture. Diffuse osteopenia is noted. The urinary bladder is distended. Degenerative changes are noted. The sacrum and pelvic ring is intact. IMPRESSION: No fracture of the pelvis or left hip is noted.
[2018-03-07 18:24] VITALS: BP 128/77
== END 2018-03-07 18:24 | disposition home or self-care (01) ==
LOC: ED 13:27
DX: S32.019A Unspecified fracture of first lumbar vertebra, initial encounter for closed fracture (principal); M19.90 Unspecified osteoarthritis, unspecified site; M25.552 Pain in left hip; R11.0 Nausea; X58.XXXA Exposure to other specified factors, initial encounter; Y92.9 Unspecified place or not applicable; E11.9 Type 2 diabetes mellitus without complications; R42 Dizziness and giddiness; Z87.891 Personal history of nicotine dependence
CPT/HCPCS: 36415; 71045; 72131; 72192; 80053; 83605; 84484; 85025; 85610; 85730; 86850; 86900; 86901; 93005; 96374; 96375; 99283; J2270; J2405; Q9967